=== PATIENT | female | born 1945 | race Caucasian/White ===

== ENCOUNTER 2019-05-22 12:32 | Outpatient (CLI) | payer MEDICARE, SELFPAY ==
--- NOTE | 2019-05-22 13:04 | MR_ITS ---
WS: [id number] MRA HEAD TECHNIQUE: Axial 3-D TOF images obtained with axial images and axial, sagittal, and coronal 2-D refor matted images. CLINICAL INFORMATION: RT TRANSIENT VISUAL LOSS COMPARISON: None. FINDINGS: Distal vertebral arteries are patent. Basilar artery is patent. Normal vascularity to the WOOD DOWEL MACHINE OPERATOR territo ry bilaterally. Both ICAs are patent at the skull base. Normal vascularity to the SUMANTH and MCA territories bilaterally . No evidence of high-grade proximal stenosis or aneurysm. Patent anterior communicating artery. Hypo plastic right A1 segment. No evidence of high-grade proximal stenosis or aneurysm. MR/MR angio head wo con [id number] IMPRESSION: 1. No evidence of high-grade proximal stenosis or aneurysm. 2. Normal variant hypoplastic right A1 segment.
--- NOTE | 2019-05-22 13:04 | MR_ITS ---
WS: [id number] MRA CAROTID WITHOUT AND WITH GADOLINIUM ENHANCEMENT TECHNIQUE: Axial 2-D TOF and gadolinium bolus images obtained with axial images and axial, sagittal, and coronal 2-D reformatted images. CLINICAL INFORMATION: TIA/RT TRANSIENT VISUAL LOSS COMPARISON: None. FINDINGS: Left: Left common carotid artery is patent. No significant left ICA stenosis. Left ICA is patent to t he skull base. Right: Right common carotid artery is patent. High-grade stenosis involving the right proximal ICA ap proximately 7 mm distal to the bifurcation with ulcerated plaque. Short segment high-grade stenosis. Right ICA is patent to the skull base with slightly reduced caliber. Moderate stenosis right proximal subclavian artery. Codominant and patent vertebral arteries laurie jaimes MR/MR angio neck w con* [id number] IMPRESSION: 1. High-grade stenosis right proximal ICA approximately 7 mm distal to the bif urcation. Associated ulcerated plaque. Right ICA remains patent to the skull ba se with slightly decreased caliber. 2. No significant left ICA stenosis. 3. Codominant and patent vertebral arteries bilaterally. 4. Moderate stenosis right proximal subclavian artery which remains patent.
[2019-05-22 14:15] LABS: Blood Urea Nitrogen 6 mg/dL (8-23)
== END 2019-05-22 12:33 | disposition home or self-care (01) ==
LOC: RADSHAW 12:40
PROVIDERS: Family Provider Physician Assistant; PCP Physician Assistant; Visit Provider Physician Assistant
DX: H53.121 Transient visual loss, right eye (principal); I70.8 Atherosclerosis of other arteries
CPT/HCPCS: 70544; 70548; 82565; 84520; A9579

== ENCOUNTER 2020-02-17 12:39 | Outpatient (CLI) | payer MEDICARE, SELFPAY ==
--- NOTE | 2020-02-17 13:08 | MM_ITS ---
WS: [id number] BILATERAL SCREENING DIGITAL MAMMOGRAM WITH CAD HISTORY: SCREEN COMPARISON: 06/21/2018 and 02/02/2015 Bilateral CC and MLO views submitted. Computer aided detection analyzed. Breast composition: There are scattered areas of fibroglandular density. No suspicious masses, microc alcifications or architectural distortion. Benign scattered calcifications in each breast. No suspici ous mass. MM/[place] [id number] IMPRESSION: BI-RADS: 2-Benign FOLLOW UP: 1 Year Follow-up
== END 2020-02-17 12:40 | disposition home or self-care (01) ==
LOC: RADSHAW 12:41
PROVIDERS: PCP Physician Assistant; Visit Provider Physician Assistant
DX: Z12.31 Encounter for screening mammogram for malignant neoplasm of breast (principal)
CPT/HCPCS: 77067

== ENCOUNTER 2020-02-17 13:42 | Outpatient (CLI) | payer MEDICARE, SELFPAY ==
--- NOTE | 2020-02-17 13:51 | CT_ITS ---
WS: [id number] LDCT LUNG CANCER SCREENING HISTORY: NICOTINE dependence, cigarettes. TECHNIQUE: Axial imaging performed from the apices to 1 cm below the costophrenic angles. Coronal and sagittal reformats are submitted with axial MIP series. All CT scans at [facility] use at least one of these dose optimization techniques: automated exposure control; mA and/or kV adjustment per patient size (includes targeted exams where dose is matched to clinical indication); or iterativ e reconstruction. DLP: 52.75 mGy.cm DIvol: 1.51 mGy COMPARISON: 05/05/2017 Diagnostic quality: Satisfactory Lung Nodules: There are several tiny pulmonary nodules throughout both lungs. These are all less than 4 mm. Previously described on 05/05/2017. No new or increasing nodule. There is an area of groundglas s attenuation in the periphery of the RIGHT lower lobe measuring 1.7 cm. Additional area of subpleura l blebs with mild wall thickening in the medial RIGHT lower lobe. All of these findings have been pre sent on the prior studies. Lungs: Hyperexpanded lungs with severe emphysema. Heart: Normal size heart. Extensive calcification versus stent in the LEFT anterior descending fritz ry artery. No pericardial effusion. Other findings: Moderate atherosclerosis aorta. Very large hiatal hernia. Prior cholecystectomy. Incr ease in the thoracic kyphosis and osteopenia. CT/CT lung screening [id number] IMPRESSION: LUNG-RADS: 2-Benign Appearance or Behavior FOLLOW UP: 12 Month: Continue annual screening with LDCT OTHER FINDINGS (S MODIFIER): None.
== END 2020-02-17 13:43 | disposition home or self-care (01) ==
PROVIDERS: PCP Physician Assistant; Visit Provider Family Medicine
DX: Z12.2 Encounter for screening for malignant neoplasm of respiratory organs (principal); F17.210 Nicotine dependence, cigarettes, uncomplicated; I70.0 Atherosclerosis of aorta; K43.9 Ventral hernia without obstruction or gangrene; Z90.49 Acquired absence of other specified parts of digestive tract
CPT/HCPCS: G0297

== ENCOUNTER 2020-02-25 14:50 | Outpatient (CLI) | payer MEDICARE, SELFPAY ==
--- NOTE | 2020-02-25 14:56 | XR_ITS ---
WS: [id number] Bone mineral density performed on a [employer], 02/25/2020 Clinical data: POST MENOPAUSAL Findings: The first 4 lumbar vertebral bodies demonstrated the bone mineral density of 1.065 g/cm2 for a young adult T score of -1.0. Measurement of the left hip reveals a bone mineral density of 0.914 g/cm2 with a young adult T score of -0.7. Measurement of the right hip reveals the bone mineral density of 0.773 g/cm2 for young adult T score of -1.9. XR/XR DEXA axial skeleton* [id number] Impression: 1. The bone mineral density of the lumbar spine showed normal bone mineral dens ity. 2. The left hip shows normal bone mineral density. 3. The right hip shows osteopenia.
== END 2020-02-25 14:51 | disposition home or self-care (01) ==
LOC: RADWPI 14:55
PROVIDERS: PCP Physician Assistant; Visit Provider Physician Assistant
DX: Z78.0 Asymptomatic menopausal state (principal); M85.88 Other specified disorders of bone density and structure, other site
CPT/HCPCS: 77080

== ENCOUNTER → 2020-03-04 11:10 | Outpatient (BNVA) | payer MEDICARE, SELFPAY | PROVIDERS: PCP Physician Assistant; Visit Provider Internal Medicine | DX: Z20.828 Contact with and (suspected) exposure to other viral communicable diseases (principal) | CPT/HCPCS: 87635 ==

== ENCOUNTER 2020-03-09 08:11 | Day surgery (SDC) | payer MEDICARE, SELFPAY ==
[2020-03-05 10:49] VITALS: BMI 27.4
[2020-03-09 08:31] VITALS: BP 117/66; PULSE 84; RESP 22; TEMP 36.3; O2SAT 100
[2020-03-09] MEDS: sodium chloride 0.9% 1,000 ML 30 ML IV (08:47)
--- NOTE | 2020-03-09 08:48 | ANES.PREANE2 ---
Pre-Anesthetic Assessment Pre-Anesthetic Assessment: Height/Weight: Height 1.6 m Weight 70.307 kg Temp Pulse Resp BP Pulse Ox 97.3 F L 84 22 H 117/66 100 03/09/20 08:31 03/09/20 08:31 03/09/20 08:31 03/09/20 08:31 03/09/20 08:31 Preop Diagnosis: c Proposed Procedure: Operation Date: 03/09/20 09:15 Proposed Procedures p EGD [id number] 95048 z12.11(Not Applicable) - Boris Sen MD s Colonoscopy(Not Applicable) - Boris Sen MD Familial anesthetic complications: ponv Was Beta Rubens taken within 24 hours: N/A Last intake: Intake Last Liquid Date 03/08/20 Last Liquid Time 20:00 Last Solid Date 03/07/20 Last Solid Time 20:00 Social: Social History: No alcohol and No tobacco Exam: Pre-Anes Outpt Exam: alert, oriented x 3, clear to auscultation bilaterally and regular rate & rhythm Airway: Cervical ROM: WNL MP: 2 Dentition: False and Partials Pulmonary: Pulmonary: COPD and Cough (chronic cough) Comments: quit smoking in october GI: GI: GERD Metabolic: Metabolic: Hyperlipidemia Neuropsych: Comments: b/l carotide artery stenosis s/p cea Anesthetic Plan: ASA status: 3 Anesthesia: MAC Risk of > 500 ml blood loss (7ml/kg in children): No Meds/Allergies Current Medications: Current Medications Generic Name Dose Route Start Last Admin Trade Name Freq PRN Reason Stop Dose Admin Sodium Chloride 1,000 mls @ 30 ml s/hr 03/09/20 08:30 03/09/20 08:47 Sodium Chloride 0.9% IV 30 mls/hr .Q24H KALYANI Administration PFSH Anesthesia PFSH: Social History (Updated 03/04/20 @ 09:47 by ASAD Liu) Smoking and tobacco status: current every day smoker Alcohol intake: never History of recent travel: No Data Anesthesia Cardiac Studies: No Data to Display
--- NOTE | 2020-03-09 08:50 | PC.NURSE ---
Called RT for preop albuterol treatment per anesthesia request.
[2020-03-09 09:08] VITALS: PULSE 81; RESP 16; O2SAT 95
[2020-03-09 09:11] VITALS: PULSE 86
[2020-03-09 09:58] VITALS: BP 84/46; PULSE 73; RESP 18; TEMP 36.4; O2SAT 95
[2020-03-09 10:23] VITALS: BP 106/61; PULSE 80; RESP 18; O2SAT 98
[2020-03-09 10:53] VITALS: BP 118/58
--- NOTE | 2020-03-09 14:12 | ANE.PACU2 ---
Inpatient post-anesthesia follow up: Airway intact: Yes Vital signs: Temperature 97.6 F Pulse Rate 80 Respiratory Rate 18 Blood Pressure 118/58 Pulse Oximetry 98 Oxygen Delivery Me thod Room Air Oxygen Flow Rate 3 Fraction of Inspir ed Oxygen Hydration adequate: Yes Nausea and vomiting: No Pain level: 1 Mental status: Baseline
[2020-03-10 07:02] LABS: H. Pylori / CLO Test Negative
--- NOTE | 2020-03-11 09:45 | W.PM.OPSUD ---
Surgery/Procedure H&P Update DATE OF PROCEDURE: March 11, 2020 DATE H&P PERFORMED: 03/04/20 PREOP DIAGNOSIS: c PLANNED PROCEDURE: Operation Date: 03/09/20 09:15 Proposed Procedures p EGD [id number] 36740 z12.11(Not Applicable) - Boris Sen MD s Colonoscopy(Not Applicable) - Boris Sen MD
== END 2020-03-09 11:06 | disposition home or self-care (01) ==
PROVIDERS: PCP Physician Assistant; Visit Provider Internal Medicine
PROC: 0DJ08ZZ Inspection of Upper Intestinal Tract, Via Natural or Artificial Opening Endoscopic (ICD-10-PCS; CPT 43235; principal; 2020-03-09 09:15)
PROC: 0DJD8ZZ Inspection of Lower Intestinal Tract, Via Natural or Artificial Opening Endoscopic (ICD-10-PCS; CPT 45378; 2020-03-09 09:15)
DX: Z12.11 Encounter for screening for malignant neoplasm of colon (principal); K44.9 Diaphragmatic hernia without obstruction or gangrene; K29.31 Chronic superficial gastritis with bleeding; K57.30 Diverticulosis of large intestine without perforation or abscess without bleeding; R12 Heartburn; J44.9 Chronic obstructive pulmonary disease, unspecified; E78.5 Hyperlipidemia, unspecified; K21.9 Gastro-esophageal reflux disease without esophagitis; F17.200 Nicotine dependence, unspecified, uncomplicated
CPT/HCPCS: 12345; 43239; 45378; 87077; 94640; G0121; J2370; J2704; J7030; J7611

== ENCOUNTER 2021-03-27 16:49 | Emergency (ER) | payer MEDICARE, SELFPAY ==
[2021-03-27 16:58] VITALS: BP 121/77; PULSE 86; RESP 16; TEMP 36.6; O2SAT 97
--- NOTE | 2021-03-27 17:31 | ECG_ITS ---
[facility] Test Date: 2021-03-27 Pat Name: Chauncey Greene Department: Room: Gender: Female Ship Liner: : 1945 Requested By: Althea Lovelace Order Number: [id number] Letty MD: Frederick Jimenes M.D. 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 [id number]
--- NOTE | 2021-03-27 17:31 | CTR_ITS ---
PROCEDURE INFORMATION: Exam: CT Head Without Contrast Exam date and time: 03/27/2021 5:31 PM Age: 75 years old Clinical indication: Dizziness and weakness, extremity; Right; Patient HX: Rle weakness w/ dizziness; Additional info: Symptoms of acute stroke TECHNIQUE: Imaging protocol: Computed tomography of the head without contrast. Radiation optimization: All CT scans at this facility use at least one of these dose optimization techniques: automated exposure control; mA and/or kV adjustment per patient size (includes targeted exams where dose is matched to clinical indication); or iterative reconstruction. COMPARISON: MR angio head wo con [id number] 05/22/2019 1:42 PM RADIATION DOSE METRICS: Total DLP (mGy-cm): 1701.08 FINDINGS: Brain: The brain is unremarkable. There is no mass effect or significant white matter disease. There is no acute intracranial hemorrhage. Cerebral ventricles: There is no significant ventricular dilation. The basal cisterns are unremarkable. Paranasal sinuses: The paranasal sinuses are clear. Mastoid air cells: The mastoid air cells are clear. Bones/joints: The calvarium is intact. Soft tissues: The visible extracranial soft tissues are unremarkable. CT/CT head wo con* [id number] IMPRESSION: No acute intracranial abnormality. Radiation Dose CTDIVOL = (mGy): DLP = 1701.08 (mGy-cm)
[2021-03-27 18:18] LABS: Basophils % 0.2 %; Eosinophils # 0.1 10^3/uL (0.0-0.8); Eosinophils % 1.7 %; Hematocrit 40.5 % (37.0-47.0); Hemoglobin 13.6 g/dL (11.5-15.3); Lymphocytes % 76.6 %; Mean Corpuscular HGB Conc 33.6 g/dL (30.0-36.0); Mean Corpuscular Hemoglobin 32.1 pg (28.0-34.0); Mean Corpuscular Volume 95.5 fl (81-99); Mean Platelet Volume 9.4 fL (7.4-10.4); Monocytes # 0.7 10^3/uL (0.2-0.9); Neutrophils % 7.3 %; Nucleated Red Blood Cells % 0 %; Platelet Count 330 10^3/cmm (130-400); Red Blood Count 4.24 10^6/uL (4.1-5.3); Red Cell Distribution Width 13.1 % (12.1-15.1); White Blood Count 5.2 10^3/uL (4.0-10.0)
[2021-03-27 18:22] LABS: INR 0.88 (0.8-1.2); Neutrophils # 0.38 10^3/uL (1.8-7.7)
[2021-03-27 18:23] LABS: Partial Thromboplastin Time 31.3 SECONDS (23.9-36.7)
[2021-03-27 18:30] LABS: Alanine Aminotransferase 11 U/L (0-33); Albumin Level 4.1 g/dL (3.5-5.2); Alkaline Phosphatase 70 IU/L (35-105); Anion Gap 13.9 (5-19); Aspartate Amino Transferase 21 U/L (0-32); Blood Urea Nitrogen 9 mg/dL (8-23); Calcium 8.5 mg/dL (8.5-10.5); Carbon Dioxide 26 mmol/L (22-29); Chloride 99 mmol/L (98-107); Creatinine Clr Calc Pharmacy 55.0543; Glucose 117 mg/dL (65-115); Osmolality Calculated 280 mOsm/kg (285-295); Potassium 3.9 mmol/L (3.5-5.1); Sodium 135 mmol/L (136-145); Total Bilirubin 0.2 mg/dL (0.15-1.2); Total Protein 7.1 g/dL (6.6-8.7)
[2021-03-27 18:40] VITALS: BP 123/58; PULSE 83; RESP 15; O2SAT 92
--- NOTE | 2021-03-27 18:59 | W.ED.GENADLT ---
Documented by User: Althea Lovelace MD 03/30/21 12:10 HPI - General Adult General: Chief complaint: Neuro Symptoms/Deficit Stated complaint: fell, Dizzy spells, Headache, ABD pain Time Seen by Provider: 03/27/21 17:31 History of Present Illness: HPI narrative: CC: Transient R leg weakness and R facial numbness HPI: [75]yo patient w/ hx of prior b/l endaractomy presenting to the ED for acute R leg weakness and R facial numbness x 3 hrs which occurred 3 hrs ago but has since resolved completely 15 minutes ago. Since then, symptoms have been persistent and have not improved. Denies any chest pain, SOB, palpitations, /GI complaints. Patient is not on any anticoagulation. Onset: 3 hrs ago Duration: 3 hrs Location: home Severity: severe Review of Systems Narrative: Constitutional: No fever, no chills. HEENT: No vision changes CV: No chest pain, no palpitations PULM: No cough, no dyspnea. GI: No abdominal pain, no N/V/D. : No dysuria MSKEL: No edema SKIN: No new rashes, no lesions. NEURO: +transient focal R leg weakness, +transient R facial numbness HEME: No visible bruises PSYCH: Normal mood PFSH ED PFSH: Social History (Updated 03/04/20 @ 09:47 by ASAD Liu) Smoking and tobacco status: current every day smoker Alcohol intake: never History of recent travel: No Physical Exam Narrative: EXAM NARRATIVE: Head: Atraumatic Eyes: PERRL, conjunctiva without injection ENT: Mucous membrane moist NECK: Supple without lymphadenopathy LUNGS: CTA CV: RRR ABDOMEN: Soft, nontender EXTREMITY: Normal ROM SKIN: No rash or erythema NEURO: NIHSS: 1. Level of Consciousness A) LOC Responsiveness 0 B) LOC Questions 0 C) LOC Commands 0 2. Horizontal Eye Movement 0 3. Visual field test 0 4. Facial Palsy 0 5. Motor Arm 0 6. Motor Leg 0 7. Limb Ataxia 0 9. Language 0 10. Speech 0 11. Extinction and Inattention 0 PSYCH: Normal mood and affect. Course Vital Signs: Vital signs: Vital Signs Temperature 97.9 F 03/27/21 16:58 Pulse Rate 83 03/27/21 18:40 Respiratory Rate 15 03/27/21 18:40 Blood Pressure 132/58 03/27/21 19:21 Pulse Oximetry 92 03/27/21 18:40 MDM - General Adult MDM Narrative: Medical decision making narrative: [75]yo patient w/ pMH of HTN, b/l endaractomy BIBA for concerns of transient focal neurological deficit including R leg weakness and R facial numbness. Presentation concerning for possible ischemic stroke requiring workup. Given History and Exam I have lower suspicion for infectious etiology, neurologic changes secondary to toxicologic ingestion, seizure, complex migraine. Workup include: POC glucose, CBC, BMP, LFTs, Troponin, PT/INR, PTT, EKG without evidence of STEMI or ischemia, fingerstick BS not hypoglycemic, and clinical picture does not suggest other stroke mimic. Plan to workup for TIA CT head negative for any acute findings. Patent is afebrile but noted to be in significant neutropenia. Disposition: Admission to Neurology with MRI brain/MRA head/neck Lab Data: Labs: Lab Results 03/27/21 03/27/21 03/27/21 17:43 17:43 17:43 WBC 5.2 10^3/uL 10^3/ uL (4.0-10.0) RBC 4.24 10^6/uL 10^6 /uL (4.1-5.3) Hgb 13.6 g/dL g/dL (11.5-15.3) Hct 40.5 % % (37.0-47.0) MCV 95.5 fl fl (81-99) MCH 32.1 pg pg (28.0-34.0) MCHC 33.6 g/dL g/dL (30.0-36.0) RDW 13.1 % % (12.1-15.1) Plt Count 330 10^3/cmm 10^3 /cmm (130-400) MPV 9.4 fL fL (7.4-10.4) Neut % (Auto) 7.3 % % Lymph % (Auto) 76.6 % % Cobb % (Auto) 14.0 % % Eos % (Auto) 1.7 % % Baso % (Auto) 0.2 % % Neut # (Auto) 0.38 10^3/uL L* 1 0^3/uL (1.8-7.7) Lymph # (Auto) 4.0 10^3/uL 10^3/ uL (0.8-4.8) Cobb # (Auto) 0.7 10^3/uL 10^3/ uL (0.2-0.9) Eos # (Auto) 0.1 10^3/uL 10^3/ uL (0.0-0.8) Baso # (Auto) 0.0 10^3/uL 10^3/ uL (0.0-0.1) Nucleated RBC % (a uto) 0 % % Nucleated RBCs # 0.0 /100WBC /100W BC PT 12.20 SECONDS SEC ONDS (12.1-14.9) INR 0.88 (0.8-1.2) APTT 31.3 SECONDS SECO NDS (23.9-36.7) Sodium 135 mmol/L L mmol /L (136-145) Potassium 3.9 mmol/L mmol/L (3.5-5.1) Chloride 99 mmol/L mmol/L (98-107) Carbon Dioxide 26 mmol/L mmol/L (22-29) Anion Gap 13.9 (5-19) BUN 9 mg/dL mg/dL (8-23) Creatinine 0.7 mg/dL mg/dL (0.5-0.9) GFR Calculation Not Reportable Glucose 117 mg/dL H mg/dL (65-115) Calculated Osmolal ity 280 mOsm/kg L mOs m/kg (285-295) Calcium 8.5 mg/dL mg/dL (8.5-10.5) Total Bilirubin 0.2 mg/dL mg/dL (0.15-1.2) AST 21 U/L U/L (0-32) ALT 11 U/L U/L (0-33) Alkaline Phosphata se 70 IU/L IU/L (35-105) Total Protein 7.1 g/dL g/dL (6.6-8.7) Albumin 4.1 g/dL g/dL (3.5-5.2) Globulin 3.0 g/dL g/dL (1.3-4.6) Urine Color Urine Appearance Urine pH Ur Specific Gravit y Urine Protein Urine Glucose (UA) Urine Ketones Urine Blood Urine Nitrate Urine Bilirubin Urine Urobilinogen Ur Leukocyte Vandana ase 03/27/21 19:01 WBC RBC Hgb Hct MCV MCH MCHC RDW Plt Count MPV Neut % (Auto) Lymph % (Auto) Cobb % (Auto) Eos % (Auto) Baso % (Auto) Neut # (Auto) Lymph # (Auto) Cobb # (Auto) Eos # (Auto) Baso # (Auto) Nucleated RBC % (a uto) Nucleated RBCs # PT INR APTT Sodium Potassium Chloride Carbon Dioxide Anion Gap BUN Creatinine GFR Calculation Glucose Calculated Osmolal ity Calcium Total Bilirubin AST ALT Alkaline Phosphata se Total Protein Albumin Globulin Urine Color Yellow (Yellow) Urine Appearance Clear (CLEAR) Urine pH 5 (5-7) Ur Specific Gravit y 1.015 (1.005-1.030) Urine Protein Neg (Negative) Urine Glucose (UA) Norm (Normal) Urine Ketones Negative (Negative) Urine Blood Neg (Negative) Urine Nitrate Negative (Negative) Urine Bilirubin Neg (Negative) Urine Urobilinogen Norm mg/dL mg/dL (Negative) Ur Leukocyte Vandana ase Negative (Negative) Imaging Data^: Other Imaging: Radiologist's impression: Proton Therapy[address] [id number] Scan ReportSigned Patient: Chauncey Greene #: [id number]: 1945cct#:[id number]/Sex: 75 / FADM Date: 03/27/21Loc: [facility]/Bed:Attending Dr: Ordering Provider/Ordering MD: Althea Lovelace MD Date of Service: 03/27/21 Procedure(s): CT head wo con* [id number] Accession Number(s): [id number] Report Number: [id number] PROCEDURE INFORMATION: Exam: CT Head Without Contrast Exam date and time: 03/27/2021 5:31 PM Age: 75 years old Clinical indication: Dizziness and weakness, extremity; Right; Patient HX: Rle weakness w/ dizziness; Additional info: Symptoms of acute stroke TECHNIQUE: Imaging protocol: Computed tomography of the head without contrast. Radiation optimization: All CT scans at this facility use at least one of these dose optimization techniques: automated exposure control; mA and/or kV adjustment per patient size (includes targeted exams where dose is matched to clinical indication); or iterative reconstruction. COMPARISON: MR angio head wo con [id number] 05/22/2019 1:42 PM RADIATION DOSE METRICS: Total DLP (mGy-cm): 1701.08 FINDINGS: Brain: The brain is unremarkable. There is no mass effect or significant white matter disease. There is no acute intracranial hemorrhage. Cerebral ventricles: There is no significant ventricular dilation. The basal cisterns are unremarkable. Paranasal sinuses: The paranasal sinuses are clear. Mastoid air cells: The mastoid air cells are clear. Bones/joints: The calvarium is intact. Soft tissues: The visible extracranial soft tissues are unremarkable. CT/CT head wo con* [id number] IMPRESSION: No acute intracranial abnormality. Radiation Dose CTDIVOL = (mGy): DLP = 1701.08 (mGy-cm) Dictated By:Eric Espinosa MDSigned By:Eric Espinosaigned Date/Time:03/27/211826 Discharge Plan Discharge Patient Disposition: Home Clinical Impression: Brain TIA Condition: Stable Prescriptions: New Aspirin Low Dose 81 mg tablet,delayed release (DR/EC) 81 mg PO DAILY Qty: 30 RF: 0 No Action lisinopril 20 mg tablet 20 mg PO DAILY RF: 0 albuterol sulfate [Ventolin HFA] 90 mcg/actuation HFA aerosol inhaler 2 puff INHALATION Q6H PRN (Reason: Shortness Of Breath) RF: 0 atorvastatin 20 mg tablet 40 mg PO DAILY RF: 0 pantoprazole 40 mg tablet,delayed release (DR/EC) 40 mg PO DAILY Qty: 90 RF: 8 multivitamin Tablet 1 tab PO DAILY RF: 0 prednisone 20 mg tablet 20 mg PO DAILY PRN (Reason: arthritis) RF: 0 Discharge Orders: Discharge ED (Routine); Ordered 03/27/21 Ordered By: Rick Abrams Referrals: Barbi Andrews PA [Primary Care Provider] - 4-7 days Patient Instructions: Transient Ischemic Attack (ED) Activity Restrictions/Additional Instructions: Return for any return of your symptoms including weakness, vision problems, language problems, numbness, headache, mental status changes, any other concerns. Take at least 81 mg of aspirin daily as we discussed until you see your doctor. Coding Level of Care Code ED Power Generation Equipment Repairer for Chg Fwd Documented by User: Rick Portillo Jose Alberto, 03/27/21 19:39 HPI - General Adult General: Chief complaint: Neuro Symptoms/Deficit Stated complaint: fell, Dizzy spells, Headache, ABD pain Time Seen by Provider: 03/27/21 17:31 PFSH ED PFSH: Social History (Updated 03/04/20 @ 09:47 by ASAD Liu) Smoking and tobacco status: current every day smoker Alcohol intake: never History of recent travel: No Course Vital Signs: Vital signs: Vital Signs Temperature 97.9 F 03/27/21 16:58 Pulse Rate 83 03/27/21 18:40 Respiratory Rate 15 03/27/21 18:40 Blood Pressure 132/58 03/27/21 19:21 Pulse Oximetry 92 03/27/21 18:40 MDM - General Adult MDM Narrative: Medical decision making narrative: 75-year-old female originally seen by Dr. Zimmer. She was checked out to me at shift change. This lady likely had a TIA today. The plan was to admit/observe this lady, for continued stroke work-up. I went in to discuss lab results and CT findings with the patient. They declined admission. They state that they have a puppy to take care of at home. I discussed the risks of leaving including evolving stroke, with worsening symptoms such as permanent weakness, permanent language problems, blindness and . They agreed the risks. They will return for any return of her symptoms. I discussed returning within a timely fashion due to time constraints for thrombolytic therapy. She had stopped taking aspirin after her carotid endarterectomy. We discussed being on 81 mg aspirin until she follows up with her doctor. Smoking cessation is also paramount Lab Data: Labs: Lab Results 03/27/21 03/27/21 03/27/21 17:43 17:43 17:43 WBC 5.2 10^3/uL 10^3/ uL (4.0-10.0) RBC 4.24 10^6/uL 10^6 /uL (4.1-5.3) Hgb 13.6 g/dL g/dL (11.5-15.3) Hct 40.5 % % (37.0-47.0) MCV 95.5 fl fl (81-99) MCH 32.1 pg pg (28.0-34.0) MCHC 33.6 g/dL g/dL (30.0-36.0) RDW 13.1 % % (12.1-15.1) Plt Count 330 10^3/cmm 10^3 /cmm (130-400) MPV 9.4 fL fL (7.4-10.4) Neut % (Auto) 7.3 % % Lymph % (Auto) 76.6 % % Cobb % (Auto) 14.0 % % Eos % (Auto) 1.7 % % Baso % (Auto) 0.2 % % Neut # (Auto) 0.38 10^3/uL L* 1 0^3/uL (1.8-7.7) Lymph # (Auto) 4.0 10^3/uL 10^3/ uL (0.8-4.8) Cobb # (Auto) 0.7 10^3/uL 10^3/ uL (0.2-0.9) Eos # (Auto) 0.1 10^3/uL 10^3/ uL (0.0-0.8) Baso # (Auto) 0.0 10^3/uL 10^3/ uL (0.0-0.1) Nucleated RBC % (a uto) 0 % % Nucleated RBCs # 0.0 /100WBC /100W BC PT 12.20 SECONDS SEC ONDS (12.1-14.9) INR 0.88 (0.8-1.2) APTT 31.3 SECONDS SECO NDS (23.9-36.7) Sodium 135 mmol/L L mmol /L (136-145) Potassium 3.9 mmol/L mmol/L (3.5-5.1) Chloride 99 mmol/L mmol/L (98-107) Carbon Dioxide 26 mmol/L mmol/L (22-29) Anion Gap 13.9 (5-19) BUN 9 mg/dL mg/dL (8-23) Creatinine 0.7 mg/dL mg/dL (0.5-0.9) GFR Calculation Not Reportable Glucose 117 mg/dL H mg/dL (65-115) Calculated Osmolal ity 280 mOsm/kg L mOs m/kg (285-295) Calcium 8.5 mg/dL mg/dL (8.5-10.5) Total Bilirubin 0.2 mg/dL mg/dL (0.15-1.2) AST 21 U/L U/L (0-32) ALT 11 U/L U/L (0-33) Alkaline Phosphata se 70 IU/L IU/L (35-105) Total Protein 7.1 g/dL g/dL (6.6-8.7) Albumin 4.1 g/dL g/dL (3.5-5.2) Globulin 3.0 g/dL g/dL (1.3-4.6) Urine Color Urine Appearance Urine pH Ur Specific Gravit y Urine Protein Urine Glucose (UA) Urine Ketones Urine Blood Urine Nitrate Urine Bilirubin Urine Urobilinogen Ur Leukocyte Vandana ase 03/27/21 19:01 WBC RBC Hgb Hct MCV MCH MCHC RDW Plt Count MPV Neut % (Auto) Lymph % (Auto) Cobb % (Auto) Eos % (Auto) Baso % (Auto) Neut # (Auto) Lymph # (Auto) Cobb # (Auto) Eos # (Auto) Baso # (Auto) Nucleated RBC % (a uto) Nucleated RBCs # PT INR APTT Sodium Potassium Chloride Carbon Dioxide Anion Gap BUN Creatinine GFR Calculation Glucose Calculated Osmolal ity Calcium Total Bilirubin AST ALT Alkaline Phosphata se Total Protein Albumin Globulin Urine Color Yellow (Yellow) Urine Appearance Clear (CLEAR) Urine pH 5 (5-7) Ur Specific Gravit y 1.015 (1.005-1.030) Urine Protein Neg (Negative) Urine Glucose (UA) Norm (Normal) Urine Ketones Negative (Negative) Urine Blood Neg (Negative) Urine Nitrate Negative (Negative) Urine Bilirubin Neg (Negative) Urine Urobilinogen Norm mg/dL mg/dL (Negative) Ur Leukocyte Vandana ase Negative (Negative) Discharge Plan Discharge Patient Disposition: Home Clinical Impression: Brain TIA Condition: Stable Prescriptions: New Aspirin Low Dose 81 mg tablet,delayed release (DR/EC) 81 mg PO DAILY Qty: 30 RF: 0 No Action lisinopril 20 mg tablet 20 mg PO DAILY RF: 0 albuterol sulfate [Ventolin HFA] 90 mcg/actuation HFA aerosol inhaler 2 puff INHALATION Q6H PRN (Reason: Shortness Of Breath) RF: 0 atorvastatin 20 mg tablet 40 mg PO DAILY RF: 0 pantoprazole 40 mg tablet,delayed release (DR/EC) 40 mg PO DAILY Qty: 90 RF: 8 multivitamin Tablet 1 tab PO DAILY RF: 0 prednisone 20 mg tablet 20 mg PO DAILY PRN (Reason: arthritis) RF: 0 Discharge Orders: Discharge ED (Routine); Ordered 03/27/21 Ordered By: Rick Abrams Referrals: Barbi Andrews PA [Primary Care Provider] - 4-7 days Patient Instructions: Transient Ischemic Attack (ED) Activity Restrictions/Additional Instructions: Return for any return of your symptoms including weakness, vision problems, language problems, numbness, headache, mental status changes, any other concerns. Take at least 81 mg of aspirin daily as we discussed until you see your doctor. Coding Level of Care Code ED Power Generation Equipment Repairer for Shantelle Arguelles
[2021-03-27 19:09] LABS: Add Urine Microscopic? NO; Charge for UA Resulting for Rev
[2021-03-27 19:11] LABS: Bilirubin Urine Neg (Negative); Blood Urine Neg (Negative); Glucose Urine UA Norm (Normal); Ketones Urine Negative (Negative); Leukocyte Esterase Urine Negative (Negative); Nitrate Urine Negative (Negative); Protein Urine Neg (Negative); Specific Gravity, Urine 1.015 (1.005-1.030); Urine Appearance Clear (CLEAR); Urine Color Yellow (Yellow); Urobilinogen Urine Norm (Negative); pH Urine 5 (5-7)
[2021-03-27 19:21] VITALS: BP 132/58
== END 2021-03-27 19:46 | disposition home or self-care (01) ==
PROVIDERS: Emergency Medicine; Emergency Provider Emergency Medicine; PCP Physician Assistant
DX: G45.9 Transient cerebral ischemic attack, unspecified (principal); F17.210 Nicotine dependence, cigarettes, uncomplicated
CPT/HCPCS: 70450; 80053; 81003; 85025; 85610; 85730; 93005; 99284

== ENCOUNTER 2021-05-18 12:58 | Outpatient (CLI) | payer MEDICARE, SELFPAY ==
--- NOTE | 2021-05-18 13:53 | MR_ITS ---
WS: [id number] MRI HEAD WITH CONTRAST TECHNIQUE: Sagittal T1, T2 axial, T2 axial FLAIR, axial susceptibility weighted imaging, axial diffus ion weighted images, and coronal T2 images were obtained. Pre and post-T1 axial and post T1 coronal i mages. ADC and FSPGR images. CLINICAL INFORMATION: TIA COMPARISON: CT March 27, 2021. MRA head May 22, 2019 FINDINGS: No evidence of restricted diffusion to suggest acute ischemia. Ventricular system and basal cisterns are patent. Moderate small vessel changes. Mild to moderate parenchymal volume loss. Normal posterior fossa. Normal vascular flow voids at the skull base. No extra-axial fluid collections. No evidence o f mass or mass effect. Paranasal sinuses are well aerated. Mastoid air cells are well aerated. No hemosiderin on the susceptibility weighted images. Normal optic chiasm and pituitary infundibulum. Mild symmetric atrophy temporal lobes and hippocampal formations. No abnormal gadolinium enhancement. Normal dural venous sinuses. Normal cavernous sinuses and Meckel' s cave. MR/MR head wo/w con [id number] IMPRESSION: 1. No evidence of restricted diffusion to suggest acute ischemia. 2. Moderate small vessel changes with [id number] parenchymal volume loss . 3. No abnormal gadolinium enhancement. 4. Mild symmetric atrophy temporal lobes and hippocampal formations. 5. No hemosiderin on susceptibly weighted images. 6. No other significant findings.
[2021-05-18] MEDS: gadobenate dimeglumine 20 mL vial IV (15:09)
== END 2021-05-18 12:59 | disposition home or self-care (01) ==
PROVIDERS: PCP Physician Assistant; Visit Provider Physician Assistant
DX: G45.9 Transient cerebral ischemic attack, unspecified (principal); G31.9 Degenerative disease of nervous system, unspecified
CPT/HCPCS: 70553

== ENCOUNTER 2021-07-30 10:31 | Day surgery (SDC) | payer MEDICARE, SELFPAY ==
[2021-07-28 08:32] VITALS: BMI 25.7
--- NOTE | 2021-07-30 10:46 | P.ANESASSM_ITS ---
Pre-Anesthetic Assessment Height/Weight: Height 1.6 m Weight 65.771 kg Preop Diagnosis: c Operation Date: 07/30/21 12:00 Proposed Procedures p MARIBELL E78.8 hyperlipidemia/K21.9gastro -esophagel reflux(Not Applicable) - Maylin Lantigua MD Familial anesthetic complications: PONV Was Beta Rubens taken within 24 hours: N/A Was Clonidine taken within 24 hours: N/A Last intake: > 8hrs Social Tobacco and No alcohol Exam alert, oriented x 3, clear to auscultation bilaterally and regular rate & rhythm Airway Mallampati: Class II Dentition: false and partials Pulmonary Chronic Obstructive Pulmonary Disease CV/HEM Hypertension PFO GI Gastroesophageal Reflux Disease [facility] [place] Rheumatoid Arthritis Neuropsych Transient Ischemic Attack Anesthetic Plan ASA status: 3 Anesthesia: MAC Risk of > 500 ml blood loss (7ml/kg in children): No Medications/Allergies Home Medications Medication Instructions Recorded Confirmed Last Taken Type albuterol sulfate 90 mcg/actuation 2 puff INHALATION Q6H PRN 11/13/19 07/28/21 03/07/20 History aerosol inhaler (Ventolin HFA) lisinopril 20 mg tablet 20 mg PO DAILY 11/13/19 07/28/21 03/27/21 History atorvastatin 20 mg tablet 40 mg PO DAILY tab 03/04/20 07/28/21 03/26/21 History multivitamin 1 tab PO DAILY 03/05/20 07/28/21 03/27/21 History pantoprazole 40 mg tablet,delayed 40 mg PO DAILY #90 tab 03/09/20 07/28/21 03/27/21 Rx release aspirin 81 mg tablet,delayed 81 mg PO DAILY #30 tab 03/27/21 07/28/21 Unknown Rx release (Aspirin Low Dose) prednisone 20 mg tablet 20 mg PO DAILY PRN 03/27/21 07/28/21 Unknown History amlodipine 5 mg tablet 5 mg PO DAILY 07/28/21 07/28/21 Unknown History Allergies Allergy/AdvReac Type Severity Reaction Status Date / Time codeine Allergy ADR-Vomitin Verified 05/24/21 12:58 g Penicillins Allergy ALGY-Anaphy Verified 05/24/21 12:58 laxis Sulfa (Sulfonamide Allergy ALGY-Rash Verified 05/24/21 12:58 Antibiotics) [facility] Anesthesia Medical History (Updated 05/25/21 @ 20:50 by Maylin Lantigua MD) GERD (gastroesophageal reflux disease) Hyperlipidemia Hypertension IBS (irritable bowel syndrome) TIA (transient ischemic attack) Social History Smoking and tobacco status: current every day smoker Alcohol intake: never History of recent travel: No Data Anesthesia Cardiac Studies: No Data to Display
[2021-07-30 11:03] VITALS: BP 121/82; PULSE 83; RESP 18; TEMP 36.3; O2SAT 98
[2021-07-30] MEDS: sodium chloride 0.9% 1,000 ML 30 ML IV (11:12)
--- NOTE | 2021-07-30 11:21 | USCV_ITS ---
Chauncey Greene Age: 76 Gender: F : 1945 Exam Date: 07/30/2021 12:10 Ordering Phys: Maylin Lantigua MD ([email or web address]) Technologist: Prudence Mendez Exam Location: [facility] [place] Indication: CVA WITH POSSIBLE PFO BP: / HR: Rhythm: Sinus Technical Quality: Adequate MEASUREMENTS (Male / Female) Normal Values Medications Patient given IV sedation by anesthesia service, for details please refer to the anesthesia report. Complications Intubation easy. Attempts x 1. No blood on probe post procedure. Patient tolerated procedure well. Proc. Components The patient was brought to the MARIBELL examination room in a fasting state after obtaining an informed consent. The MARIBELL probe was passed into the posterior pharynx , mid-esophagus, distal esophagus, and gastric fundus. FINDINGS Left Ventricle Normal left ventricular size, systolic function and wall thickness, with no regional wall motion abnormalities. Left ventricular ejection fraction is estimated at 65 %. Right Ventricle Normal right ventricular size and systolic function. Right Atrium Normal right atrial size. Left Atrium Normal left atrial size. LA Appendage Normal left atrial appendage. No thrombus visualized in the left atrial appendage. IA Septum Small patent foramen ovale present with possibly a bidirectional shunt. Mitral Valve Structurally normal mitral valve. No mitral valve stenosis. Trace mitral valve regurgitation. Aortic Valve Structurally normal trileaflet aortic valve. No aortic valve stenosis. No aortic valve regurgitation. Tricuspid Valve Structurally normal tricuspid valve. No tricuspid valve stenosis. Trace tricuspid valve regurgitation. Pulmonic Valve Structurally normal pulmonic valve. Trace pulmonary valve regurgitation. Pericardium No pericardial effusion. Aorta Normal size aortic root and proximal ascending aorta. No aortic dilation, aneurysm or dissection. Grade III atheroma noted in proximal and mid descending aorta. CONCLUSIONS 1. Normal left ventricular size, systolic function and wall thickness, with no regional wall motion abnormalities. Left ventricular ejection fraction is estimated at 65 %. 2. Small patent foramen ovale present with possibly a bidirectional shunt. 3. Grade III atheroma noted in proximal and mid descending aorta. 4. No prior similar studies to compare. Maylin Lantigua MD (Electronically Signed) Final Date: 08 August 2021 10:06 S
--- NOTE | 2021-07-30 11:52 | W.PM.OPSFHP ---
Same Day Surgery H&P Indication for Procedure/HPI DATE OF PROCEDURE: July 30, 2021 CHIEF COMPLAINT/INDICATIONFOR SURGICAL PROCEDURE: CVA, Suspicion of PFO on TTE PREOP DIAGNOSIS: c PLANNED PROCEDURE: Operation Date: 07/30/21 12:00 Proposed Procedures p MARIBELL E78.8 hyperlipidemia/K21.9gastro -esophagel reflux(Not Applicable) - Maylin Lantigua MD 76 yo woman presented after having right leg weakness. She underwent echo that showed PFO with right to left shunting. LVEF>50%. 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 EKG showed sinus rhythm, possible left atrial enlargement. RBBB. possible old septal NH. She is here for assessment of PFO. Medications/Allergies* Home Medications Medication Instructions Recorded Confirmed Type albuterol sulfate 90 mcg/actuation 2 puff INHALATION Q6H PRN 11/13/19 07/30/21 History aerosol inhaler (Ventolin HFA) lisinopril 20 mg tablet 20 mg PO DAILY 11/13/19 07/30/21 History atorvastatin 20 mg tablet 40 mg PO DAILY tab 03/04/20 07/30/21 History multivitamin 1 tab PO DAILY 03/05/20 07/30/21 History prednisone 20 mg tablet 20 mg PO DAILY PRN 03/27/21 07/30/21 History amlodipine 5 mg tablet 5 mg PO DAILY 07/28/21 07/30/21 History Allergies/Adverse Reactions Allergy/AdvReac Type Severity Reaction Status Date / Time codeine Allergy ADR-Vomitin Verified 07/30/21 11:05 g Penicillins Allergy ALGY-Anaphy Verified 07/30/21 11:05 laxis Sulfa (Sulfonamide Allergy ALGY-Rash Verified 07/30/21 11:05 Antibiotics) Current Medications: Generic Name Dose Route Start Last Admin Trade Name Freq PRN Reason Stop Dose Admin Sodium Chloride 1,000 mls @ 30 mls/hr 07/30/21 10:45 07/30/21 11:12 Sodium Chloride 0.9% IV 07/31/21 10:44 30 mls/hr .Q24H KALYANI Administration Pertinent History/Comorbid Conditions* Medical History (Updated 05/25/21 @ 20:50 by Maylin Lantigua MD) GERD (gastroesophageal reflux disease) Hyperlipidemia Hypertension IBS (irritable bowel syndrome) TIA (transient ischemic attack) Social History Smoking and tobacco status: current every day smoker Alcohol intake: never History of recent travel: No Pertinent Exam Findings alert, oriented x 3, clear to auscultation bilaterally and regular rate & rhythm Recommendations Surgery/Procedure today Coding Level of Care Code Acute Building Construction Professor for Shantelle Arguelles
[2021-07-30 13:07] VITALS: BP 103/44; PULSE 78; RESP 18; TEMP 36.4; O2SAT 99
[2021-07-30 13:20] VITALS: BP 133/57; PULSE 82; RESP 18; TEMP 36.3; O2SAT 98
== END 2021-07-30 13:35 | disposition home or self-care (01) ==
PROVIDERS: PCP Physician Assistant; Visit Provider Internal Medicine Cardiovascular Disease
PROC: (CPT 93312; principal; 2021-07-30 12:00)
DX: I70.0 Atherosclerosis of aorta (principal); E78.5 Hyperlipidemia, unspecified; K21.9 Gastro-esophageal reflux disease without esophagitis; Z79.52 Long term (current) use of systemic steroids; I10 Essential (primary) hypertension; Z86.73 Personal history of transient ischemic attack (TIA), and cerebral infarction without residual deficits; F17.210 Nicotine dependence, cigarettes, uncomplicated; J44.9 Chronic obstructive pulmonary disease, unspecified; M06.9 Rheumatoid arthritis, unspecified
CPT/HCPCS: 93312; 93320; 93325; J2704; J7030

== ENCOUNTER → 2021-09-02 09:39 | Outpatient (BNVA) | payer MEDICARE, SELFPAY | PROVIDERS: PCP Physician Assistant; Visit Provider Internal Medicine | DX: M06.9 Rheumatoid arthritis, unspecified (principal); Z11.59 Encounter for screening for other viral diseases; Z11.1 Encounter for screening for respiratory tuberculosis | CPT/HCPCS: 73030; 73120; 80053; 85025; 85651; 86200; 86480; 86704; 86803; 87340; 99203; 99204 ==

== ENCOUNTER 2024-05-10 12:18 | Inpatient (IN) | payer MEDICARE, SELFPAY ==
[2024-05-10] VITALS (27 sets, daily range): BP systolic 100–127; BP diastolic 64–89; PULSE 78–90; RESP 16–84; TEMP 36.7–37.3; O2SAT 86–98; BMI 25.1; BMI 23.2
--- NOTE | 2024-05-10 12:22 | ECG_ITS ---
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1945 Requested By: Elizabeth Parisi Order Number: [id number] Reading MD: EDITH DRISCOLL Measurements Intervals [place] Rate: 88 P: 83 [place]: 156 QRS: 100 QRSD: 129 T: 75 QT: 366 QTc: 444 Interpretive Statements SINUS RHYTHM RIGHT BUNDLE BRANCH BLOCK [120+ ms QRS DURATION, UPRIGHT V1, 40+ ms S IN I/aVL/V4/V5/V6] SEPTAL MYOCARDIAL INFARCTION , OF INDETERMINATE AGE [40+ ms Q WAVE IN V1/V2] Compared to ECG 03/27/2021 18:14:13 No significant changes Electronically Signed On 05-10-2024 23:21:46 SUSPECT ARTIST by EDITH DRISCOLL [id number]
--- NOTE | 2024-05-10 12:49 | XR_ITS ---
WS: [id number] XR chest 1V portable [id number] REASON FOR EXAM: Shortness of breath FINDINGS: The chest is unchanged compared to 02/21/2019. Mild tortuosity and ectasia of the thoracic aorta. Presumed small hiatal hernia. Normal heart size. Calcified granulomatous disease in both hemithoraces. No acute pulmonary parenchymal or pleural abnormality. Probable complete rotator cuff tear with associated severe osteoarthritis and loose bodies in the rig ht shoulder. XR/XR chest 1V portable [id number] IMPRESSION: Stable chest with no acute abnormality.
--- NOTE | 2024-05-10 12:50 | ED_ITS ---
HPI - SOB/Dyspnea 2 General: Chief Complaint: Shortness of Breath/Dyspnea Stated Complaint: SOB Time Seen by Provider: 05/10/24 12:37 History of Present Illness: HPI Narrative: 79-year-old female with history of COPD, hypertension, hyperlipidemia and former tobacco abuse who quit smoking about 2 months ago who presents the emergency room with worsening shortness of breath. She has had cough. Possible fevers. She is already on doxycycline and steroids at home. No altered mental status no focal motor deficits. Some pleuritic chest pain. No abdominal pain. No nausea or vomiting. She has a frequent productive cough. On presentation her O2 sats are in the low 80s. Initially requiring 3 L. She is not on oxygen at home. Related Data Home Medications Medication Instructions Recorded Confirmed albuterol sulfate 90 mcg/actuation 2 puff inhalation Q6H PRN 11/13/19 05/10/24 aerosol inhaler (Ventolin HFA) Shortness Of Breath atorvastatin 20 mg tablet 40 mg PO DAILY 03/04/20 05/10/24 acetaminophen 325 mg tablet 650 mg PO QID PRN Fever Or Pain 05/10/24 05/10/24 (Tylenol) doxycycline hyclate 100 mg capsule 100 mg PO BID 05/10/24 05/10/24 famotidine 20 mg tablet 20 mg PO BID 05/10/24 05/10/24 [id number] 8 mg-folic 400 1 tab PO DAILY 05/10/24 05/10/24 mcg-K 50 mcg-lutein 300 mcg tablet (Centrum Silver Women) potassium citrate 99 mg capsule 99 mg PO BID 05/10/24 05/10/24 prednisone 20 mg tablet See Rx Instructions .Route .COMPLEX 05/10/24 05/10/24 psyllium husk 3.4 gram/5.4 gram 1 tbsp PO BID 05/10/24 05/10/24 oral powder (Metamucil) Previous Rx's Medication Instructions Recorded aspirin 81 mg tablet,delayed 81 mg PO DAILY #30 tabs 03/27/21 release (Deanna Low Dose Aspirin) Allergies Allergy/AdvReac Type Severity Reaction Status Date / Time codeine Allergy ADR-Vomitin Verified 09/02/21 10:11 g Penicillins Allergy ALGY-Anaphy Verified 09/02/21 10:11 laxis Sulfa (Sulfonamide Allergy ALGY-Rash Verified 09/02/21 10:11 Antibiotics) Review of Systems 2 Narrative: Constitutional symptoms: Negative except as documented in HPI. Skin symptoms: Negative except as documented in HPI. Eye symptoms: Negative except as documented in HPI. ENMT symptoms: Negative except as documented in HPI. Respiratory symptoms: Negative except as documented in HPI. Cardiovascular symptoms: Negative except as documented in HPI. Gastrointestinal symptoms: Negative except as documented in HPI. Genitourinary symptoms: Negative except as documented in HPI. Musculoskeletal symptoms: Negative except as documented in HPI. Neurologic symptoms: Negative except as documented in HPI. Psychiatric symptoms: Negative except as documented in HPI. Endocrine symptoms: Negative except as documented in HPI. PFSH ED 2 PFSH: Medical History (Updated 05/10/24 @ 14:19 by Elizabeth Rushing MD) Rheumatoid arthritis Hyperlipidemia TIA (transient ischemic attack) GERD (gastroesophageal reflux disease) Hypertension IBS (irritable bowel syndrome) Family History (Updated 09/02/21 @ 10:24 by Tennille Castro LPN) Other CAD (coronary artery disease) Diabetes Hyperlipidemia Hypertension Lung disease Lupus Rheumatoid arthritis Stroke Denies family history of Chronic kidney disease (CKD) Cancer Social History (Updated 09/02/21 @ 10:22 by Tennille Castro LPN) Smoking and tobacco/nicotine status: former use of tobacco/nicotine Quit status (tobacco/nicotine): has quit using Former quit date comment: 6 weeks Alcohol intake: former Former alcohol use details: a little bit of wine occasionally Physical Exam 2 Narrative: EXAM NARRATIVE: General: Alert, moderate distress. Skin: Warm, dry. Head: Normocephalic, atraumatic. Neck: Supple, trachea midline. Eye: Extraocular movements are intact. Ears, nose, mouth and throat: Oral mucosa moist. Cardiovascular: Regular rate and rhythm, Normal peripheral perfusion. Respiratory: coarse, scattered wheeze, moderate increased wob. tachypnea, prolonged expiratory phase. breath sounds are equal, Symmetrical chest wall expansion. Gastrointestinal: Soft, Nontender, Non distended, Normal bowel sounds. Musculoskeletal: Normal ROM, no deformity. Neurological: Alert and oriented to person, place, time, and situation, No focal neurological deficit observed. Psychiatric: Cooperative, appropriate mood & affect. Course 2 Vital Signs: Vital signs: Vital Signs Temperature 98.1 F 05/10/24 12:30 Pulse Rate 89 05/10/24 13:00 Respiratory Rate 18 05/10/24 12:58 Blood Pressure 122/85 05/10/24 12:30 Pulse Oximetry 92 05/10/24 12:58 Oxygen Delivery Me thod Nasal Cannula 05/10/24 12:58 Oxygen Flow Rate 3 05/10/24 12:58 MDM - SOB/Dyspnea Medical Decision Making Differential diagnosis for patient with shortness of breath includes but is not limited to and based on the above HPI, review of systems and physical exam: Pneumonia. Bronchitis. Asthma or COPD with acute exacerbation. Acute coronary syndrome / CA. Pulmonary embolism. Anxiety. Congestive heart failure. Viral infections including influenza and Covid-19. Atrial fibrillation. Anxiety. Pleural effusion. Pneumothorax. Orders placed to evaluate differential diagnosis based on the above differential, HPI and physical exam EKG: Time 1225. Rate 88. Normal sinus rhythm, No ST-T changes, no ectopy, right bundle branch block, This was reviewed and interpreted by myself the ER physician at 1230 AB.48/45/46 with an O2 sat of 81% on 3 L nasal cannula. Definite hypoxemic respiratory failure without hypercapnia. Chest x-ray: No acute process. No infiltrate. No pneumothorax. This was reviewed and interpreted by myself the emergency room physician. I also reviewed the radiology report. Lab Review: Laboratory results were reviewed and interpreted by myself the emergency room physician. Patient has some leukocytosis with white count 12.75. She has been on steroids. No anemia. No renal failure. Initial troponin is 12. proBNP is not elevated. It is 243. I reviewed the patient's medical record. Reexamination: Patient still with moderate increased work of breathing on 6 L nasal cannula. She has had continued increased oxygen requirements. Still with wheeze and tight lungs. Consultation: I spoke with Dr. Crook who is on-call for the hospitalist service. She agrees to admission to the ICU. Assessment and plan: COPD with acute exacerbation Hypoxemic respiratory failure Failed outpatient therapy ?Patient requiring around 6 L nasal cannula. I have given her 2 updrafts here. IV Solu-Medrol. She was on doxycycline so I gave her Rocephin and azithromycin here. -I discussed the patient with the hospitalist on-call who is admitting the patient. - Discussed findings and plan with patient. Answered any questions. - All laboratory values were reviewed and interpreted personally by myself, the ER physician - All imaging was reviewed and interpreted personally by myself, the ER physician. - Evaluation and treatment of this problem were appropriate in the emergency setting Critical care -I spent a total of >35 minutes of critical care time managing the patient, independent of any other practitioner. -The time involved in the performance of separately reportable procedures was not counted towards critical care time. Lab Data 05/10/24 12:58 05/10/24 12:58 Labs/Radiology: Radiology Impressions Chest X-Ray 05/10/24 12:49 IMPRESSION: Stable chest with no acute abnormality. Laboratory Results WBC 12.75 10^3/uL (3.29-11.43) H 05/10/24 12:58 RBC 4.12 10^6/uL (3.85-5.65) 05/10/24 12:58 Hgb 13.20 g/dL (11.27-16.99) 05/10/24 12:58 Hct 39.4 % (36-47) 05/10/24 12:58 MCV 95.6 fl (85-98) 05/10/24 12:58 MCH 32.0 pg (27-33) 05/10/24 12:58 MCHC 33.5 g/dL (30-55) 05/10/24 12:58 RDW 13.4 % (12.1-15.1) 05/10/24 12:58 Plt Count 298 10^3/cmm (157-399) 05/10/24 12:58 MPV 9.4 fL (7.4-10.4) 05/10/24 12:58 Neut % (Auto) 83.3 % 05/10/24 12:58 Lymph % (Auto) 12.0 % 05/10/24 12:58 [place] % (Auto) 3.2 % 05/10/24 12:58 Eos % (Auto) 0.1 % 05/10/24 12:58 Baso % (Auto) 0.2 % 05/10/24 12:58 Neut # (Auto) 10.63 10^3/uL (1.8-7.7) H 05/10/24 12:58 Lymph # (Auto) 1.5 10^3/uL (0.8-4.8) 05/10/24 12:58 [place] # (Auto) 0.4 10^3/uL (0.2-0.9) 05/10/24 12:58 Eos # (Auto) 0.0 10^3/uL (0.0-0.8) 05/10/24 12:58 Baso # (Auto) 0.0 10^3/uL (0.0-0.1) 05/10/24 12:58 Nucleated RBC % (auto) 0.2 % 05/10/24 12:58 Nucleated RBCs # 0.0 /100WBC 05/10/24 12:58 Specimen Type Arterial 05/10/24 12:58 Sample Site Brachial, left 05/10/24 12:58 ABG pH 7.48 (7.35-7.45) H 05/10/24 12:58 ABG pCO2 45.7 mmHg (35-45) H 05/10/24 12:58 ABG pO2 45.9 mmHg (80.0-100.0) L 05/10/24 12:58 ABG PO2/FiO2 Ratio 143 05/10/24 12:58 ABG HCO3 33.9 mmol/L (22-26) H 05/10/24 12:58 ABG O2 Saturation 81.0 05/10/24 12:58 ABG Base Excess 9.0 mmol/L (-2.0-2.0) H 05/10/24 12:58 Rufino Test Pos 05/10/24 12:58 A-a O2 Gradient 16.1 mmHg (5-10) H 05/10/24 12:58 Hematocrit 42.4 % (37-47) 05/10/24 12:58 Hgb O2 Saturation 79.3 % (95-100) L 05/10/24 12:58 Carboxyhemoglobin 1.2 %THgb (0.4-20.1) 05/10/24 12:58 Methemoglobin 0.9 % (0.4-1.5) 05/10/24 12:58 Total Hemoglobin 13.8 g/dL (12-16) 05/10/24 12:58 Sodium 139.0 mmol/L (131-143) 05/10/24 12:58 Potassium 3.3 mmol/L (3.5-5.0) L 05/10/24 12:58 Glucose 121.0 mg/dL (70-115) H 05/10/24 12:58 Ionized Calcium 1.1 mmol/L (1.1-1.4) 05/10/24 12:58 O2 Delivery Device Nc 05/10/24 12:58 O2 Liters/Min 3.0 % 05/10/24 12:58 FiO2 32.0 % 05/10/24 12:58 Irrigation Foreman ID Cak 05/10/24 12:58 Sodium 137 mmol/L (136-145) 05/10/24 12:58 Potassium 3.6 mmol/L (3.5-5.1) 05/10/24 12:58 Chloride 95 mmol/L (98-107) L 05/10/24 12:58 Carbon Dioxide 29 mmol/L (22-29) 05/10/24 12:58 Anion Gap 16.6 (5-19) 05/10/24 12:58 BUN 8 mg/dL (8-23) 05/10/24 12:58 Creatinine 0.7 mg/dL (0.5-0.9) 05/10/24 12:58 GFR Calculation Not Reportable 05/10/24 12:58 Glucose 126 mg/dL (65-115) H 05/10/24 12:58 Calculated Osmolality 284 mOsm/kg (285-295) L 05/10/24 12:58 Lactic Acid 2.1 mmol/L (0.5-2.2) 05/10/24 12:58 Calcium 9.0 mg/dL (8.5-10.5) 05/10/24 12:58 Total Bilirubin 0.5 mg/dL (0.15-1.2) 05/10/24 12:58 AST 30 U/L (0-32) 05/10/24 12:58 ALT 23 U/L (0-33) 05/10/24 12:58 Alkaline Phosphatase 48 U/L (35-105) 05/10/24 12:58 Troponin T Baseline 12 ng/L (0-10) H 05/10/24 12:58 NT-Pro-B Natriuret Pep 243 pg/mL (0-450) 05/10/24 12:58 Total Protein 6.3 g/dL (6.6-8.7) L 05/10/24 12:58 Albumin 3.8 g/dL (3.5-5.2) 05/10/24 12:58 Globulin 2.5 g/dL (1.3-4.6) 05/10/24 12:58 All radiology interpretation(s) finalized by discharge Discharge Plan Discharge Patient Disposition: Admitted As Inpatient Clinical Impression: Acute exacerbation of chronic obstructive airways disease, Acute hypoxemic respiratory failure Condition: Stable Coding Level of Care Code ED Supervisor Wound for Shantelle Arguelles
[2024-05-10] MEDS: albuterol 2.5 mg/3 mL Neb INHALATION (12:55)
[2024-05-10] MEDS: ipratropium-albuterol 3 mL Neb INHALATION ×3 (12:55→22:19)
[2024-05-10 13:06] LABS: Basophils % 0.2 %; Eosinophils % 0.1 %; Hematocrit 39.4 % (36-47); Lymphocytes # 1.5 10^3/uL (0.8-4.8); Mean Corpuscular HGB Conc 33.5 g/dL (30-55); Mean Corpuscular Volume 95.6 fl (85-98); Mean Platelet Volume 9.4 fL (7.4-10.4); Monocytes # 0.4 10^3/uL (0.2-0.9); Monocytes % 3.2 %; Neutrophils # 10.63 10^3/uL (1.8-7.7); Neutrophils % 83.3 %; Nucleated Red Blood Cells % 0.2 %; Platelet Count 298 10^3/cmm (157-399); Red Blood Count 4.12 10^6/uL (3.85-5.65); Red Cell Distribution Width 13.4 % (12.1-15.1); White Blood Count 12.75 10^3/uL (3.29-11.43)
[2024-05-10 13:09] LABS: ABG PCO2 45.7 mmHg (35-45); ABG PH Result 7.48 (7.35-7.45); Alveolar-Arterial Oxygen Gradi 16.1 mmHg (5-10); Arterial Blood Gas Hematocrit 42.4 % (37-47); Blood Gas Allen Test Pos; Blood Gas Operator Identificat CAK; Blood Gas Sample Site Brachial, left; Blood Gas Sample Type Arterial; Carboxyhemoglobin 1.2 %THgb (0.4-20.1); HCO3 ABG 33.9 mmol/L (22-26); HGB O2 Sat 79.3 % (95-100); Ionized Calcium Level - ABG 1.1 mmol/L (1.1-1.4); Methemoglobin 0.9 % (0.4-1.5); Oxygen Device NC; PO2 ABG 45.9 mmHg (80.0-100.0); PO2 FiO2 Ratio Arterial Blood 143; Potassium Level - ABG 3.3 mmol/L (3.5-5.0); Total Hemoglobin 13.8 g/dL (12-16)
[2024-05-10 13:24] LABS: Troponin(5th) Baseline 12 ng/L (0-10)
[2024-05-10 13:25] LABS: Lactic Sepsis W/Reflex 2.1 mmol/L (0.5-2.2)
[2024-05-10] MEDS: methylPREDNISolone sod succ 125 mg/2 mL INJ IVP (13:27)
[2024-05-10 13:53] LABS: Alanine Aminotransferase 23 U/L (0-33); Albumin Level 3.8 g/dL (3.5-5.2); Alkaline Phosphatase 48 U/L (35-105); Anion Gap 16.6 (5-19); Aspartate Amino Transferase 30 U/L (0-32); Blood Urea Nitrogen 8 mg/dL (8-23); Carbon Dioxide 29 mmol/L (22-29); Chloride 95 mmol/L (98-107); Creatinine Clr Calc Pharmacy 50.6494; Globulin 2.5 g/dL (1.3-4.6); Glucose 126 mg/dL (65-115); NT Pro B Type Natriuretic Pept 243 pg/mL (0-450); Osmolality Calculated 284 mOsm/kg (285-295); Potassium 3.6 mmol/L (3.5-5.1); Sodium 137 mmol/L (136-145); Total Bilirubin 0.5 mg/dL (0.15-1.2); Total Protein 6.3 g/dL (6.6-8.7)
--- NOTE | 2024-05-10 14:18 | CTR_ITS ---
PROCEDURE INFORMATION: Exam: CTA Chest With Contrast Exam date and time: 05/10/2024 3:04 PM Age: 79 years old Clinical indication: Shortness of breath; Additional info: R/O pe, copd exacerbation TECHNIQUE: Imaging protocol: Computed tomographic angiography of the chest with contrast. Exam focused on the arteries. 3D rendering (Not supervised by radiologist): MIP and/or 3D reconstructed images were created by the technologist. Radiation optimization: All CT scans at this facility use at least one of these dose optimization techniques: automated exposure control; mA and/or kV adjustment per patient size (includes targeted exams where dose is matched to clinical indication); or iterative reconstruction. Contrast material: OMNI 350; Contrast volume: 60 ml; Contrast route: INTRAVENOUS (IV); COMPARISON: CR XR chest 1V portable [id number] 05/10/2024 1:26 PM RADIATION DOSE METRICS: Total DLP (mGy-cm): 336.7 FINDINGS: Pulmonary arteries: Normal. No pulmonary emboli. Aorta: Unremarkable. No aortic aneurysm. No aortic dissection. Lungs: Focal area of scarring, traction bronchiectasis, and emphysematous changes at the medial/posterior right lung base. Tree-in-bud pulmonary micro nodules noted in the right middle lobe. No consolidation. No masses. Pleural spaces: Unremarkable. No pneumothorax. No pleural effusion. Heart: Unremarkable. No cardiomegaly. No pericardial effusion. Lymph nodes: Unremarkable. No enlarged lymph nodes. Bones/joints: Unremarkable. No acute fracture. Soft tissues: Unremarkable. CT/CT angio chest PE protcl [id number] IMPRESSION: 1. Tree-in-bud pulmonary micro nodules noted in the right middle lobe suggestive of small airway infectious or inflammatory process. 2. Negative for pulmonary embolism.
--- NOTE | 2024-05-10 14:28 | ECG_ITS ---
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1945 Requested By: Elizabeth Parisi Order Number: [id number] Reading MD: EDITH DRISCOLL Measurements Intervals [place] Rate: 84 P: 85 [place]: 155 QRS: 99 QRSD: 129 T: 75 QT: 391 QTc: 463 Interpretive Statements SINUS RHYTHM RIGHT BUNDLE BRANCH BLOCK [120+ ms QRS DURATION, UPRIGHT V1, 40+ ms S IN I/aVL/V4/V5/V6] SEPTAL MYOCARDIAL INFARCTION , OF INDETERMINATE AGE [40+ ms Q WAVE IN V1/V2] Compared to ECG 05/10/2024 12:25:10 No significant changes Electronically Signed On 05-10-2024 23:32:18 EKG TECH by EDITH DRISCOLL [email or web address]
--- NOTE | 2024-05-10 14:28 | P.HP_ITS ---
Providers/Chief Complaint 2 Primary Care Provider: Barbi Andrews Chief Complaint: SOB History of Present Illness Chauncey Greene is a 79 year old female with past medical history of hyperlipidemia, rheumatoid arthritis not on any medications, asthma however not on any inhalers or medications for it since it is very well-controlled, presented to the hospital for shortness of breath. She states she used her nebulizer however was unable to walk from living application because she became very short of breath. She is on used her inhaler which helped a little however was very short of breath and asked her daughter to come take her to the hospital. She is requiring 5 L nasal cannula right now saturating 95%. She is not on any oxygen at home. She states this all started in February with some kind of upper respiratory viral illness which did improve later but then she got sick again. She already finished a course of antibiotic steroids. Is currently on doxycycline 100 mg twice daily at home. She is having yellow sputum production. Denies any chest pain abdominal pain nausea vomiting diarrhea at this time. Daughter is accompanying her at bedside. Patient would like to be a full code. Medications/Allergies Home Medications Medication Instructions Recorded Confirmed Last Taken Type albuterol sulfate 90 mcg/actuation 2 puff inhalation Q6H PRN 11/13/19 05/10/24 05/10/24 History aerosol inhaler (Ventolin HFA) Shortness Of Breath atorvastatin 20 mg tablet 40 mg PO DAILY 03/04/20 05/10/24 05/10/24 History aspirin 81 mg tablet,delayed 81 mg PO DAILY #30 tabs 03/27/21 05/10/24 05/10/24 Rx release (Deanna Low Dose Aspirin) acetaminophen 325 mg tablet 650 mg PO QID PRN Fever Or Pain 05/10/24 05/10/24 Unknown History (Tylenol) doxycycline hyclate 100 mg capsule 100 mg PO BID 05/10/24 05/10/24 05/10/24 History famotidine 20 mg tablet 20 mg PO BID 05/10/24 05/10/24 05/10/24 History extuvicd-hdke-poda 8 mg-folic 400 1 tab PO DAILY 05/10/24 05/10/24 05/09/24 History mcg-K 50 mcg-lutein 300 mcg tablet (Centrum Silver Women) potassium citrate 99 mg capsule 99 mg PO BID 05/10/24 05/10/24 05/09/24 History prednisone 20 mg tablet See Rx Instructions .Route .COMPLEX 05/10/24 05/10/24 05/10/24 History psyllium husk 3.4 gram/5.4 gram 1 tbsp PO BID 05/10/24 05/10/24 05/09/24 History oral powder (Metamucil) Allergies Allergy/AdvReac Type Severity Reaction Status Date / Time codeine Allergy ADR-Vomitin Verified 09/02/21 10:11 g Penicillins Allergy ALGY-Anaphy Verified 09/02/21 10:11 laxis Sulfa (Sulfonamide Allergy ALGY-Rash Verified 09/02/21 10:11 Antibiotics) PFSH Acute 2 PFSH: Medical History (Updated 05/11/24 @ 14:11 by Michelle Crook MD) Rheumatoid arthritis Hyperlipidemia TIA (transient ischemic attack) GERD (gastroesophageal reflux disease) Hypertension IBS (irritable bowel syndrome) Family History (Updated 09/02/21 @ 10:24 by Tennille Castro LPN) Other CAD (coronary artery disease) Diabetes Hyperlipidemia Hypertension Lung disease Lupus Rheumatoid arthritis Stroke Denies family history of Chronic kidney disease (CKD) Cancer Social History (Updated 09/02/21 @ 10:22 by Tennille Castro LPN) Smoking and tobacco/nicotine status: former use of tobacco/nicotine Quit status (tobacco/nicotine): has quit using Former quit date comment: 6 weeks Alcohol intake: former Former alcohol use details: a little bit of wine occasionally Vitals/I&O/Wt Last Vital Signs Temp 98.1 F 05/10/24 12:30 Pulse 89 05/10/24 13:00 Resp 18 05/10/24 12:58 BP 122/85 05/10/24 12:30 Pulse Ox 92 05/10/24 12:58 O2 Del Method Nasal Cannula 05/10/24 12:58 O2 Flow Rate 3 05/10/24 12:58 Weight last 48 hrs Weight 64.41 kg Physical Exam 2 Narrative: General: Alert oriented x3, patient seen sitting up in bed extending her torso and having some difficulty breathing but saturating okay on 5 L nasal cannula. No conversational dyspnea. No acute respiratory distress. HEENT: Normocephalic, atraumatic, EOMI, Cardio: Regular rate rhythm, normal S1-S2, Respiratory: Diffuse rhonchi bilaterally GI: Abdomen soft, nontender, nondistended, bowel sounds + Extremities: No edema bilateral lower extremities Data 05/11/24 04:19 05/11/24 04:19 Micro: Microbiology 05/10/24 12:58 Blood Culture - Preliminary Blood SPECIMEN COLLECTED A&P Assessment and plan (1) Hypertension: (2) Hyperlipidemia: (3) GERD (gastroesophageal reflux disease): (4) Rheumatoid arthritis: (5) Acute exacerbation of chronic obstructive airways disease: (6) Asthma: (7) Right middle lobe pneumonia: Plan #Shortness of breath #Right middle lobe pneumonia #History of rheumatoid arthritis #History of asthma #Hyperlipidemia #New oxygen supplementation ? Check sputum Gram stain culture ? Check blood cultures ? Placed on Solu-Medrol 40 IV twice daily ? Check respiratory viral panel. ? CTA chest ruled out PE. ? Patient requiring supplemental oxygen at this time. Wean off as able. ? Low threshold for intubation. Patient would like to be full code. Will admit to ICU at this time for closer monitoring ? ABG shows O2 45 on admission. ? Patient states she did not take any methotrexate or other medications for her rheumatoid for last few years. Denies any nighttime awakenings or daytime respiratory distress requiring use of albuterol. ? Her nebulizer is from [place] from a long time ago and she used it since she had it at home. ? Will place on vancomycin and aztreonam for empiric coverage of antibiotics, add levofloxacin for dual pseudomonal coverage Full code DVT prophylaxis: Heparin SQ twice daily Attestations 2 Medical Necessity Statement*: Greater than 2 midnight stay for management of right middle lobe pneumonia, hypoxia requiring 5 L nasal cannula. Diagnoses Hypertension I10 Hyperlipidemia E78.5 GERD (gastroesophageal reflux disease) K21.9 Rheumatoid arthritis M06.9 Acute exacerbation of chronic obstructive airways disease J44.1 Asthma J45.909 Right middle lobe pneumonia J18.9
[2024-05-10] MEDS: cefTRIAXone 1,000 mg SDV 1000 MG IVP (14:38)
[2024-05-10] MEDS: AZITHROMYCIN ADD-Vantage 500 MG in 0.9% NaCl ADD-Vantage 250 ML 250 MG IV (14:41)
[2024-05-10 14:52] LABS: Reflex Lactate Order REFLEX LACTIC ORDERD
[2024-05-10] MEDS: iohexol 350 mg/mL 500 mL Btl (per mL) IV (15:11)
[2024-05-10 15:36] LABS: Adenovirus Not Detected (NOT DETECT); Chlamydia Pneumoniae Not Detected (NOT DETECT); Coronavirus 229E,HKU1,NL63,OC4 Not Detected (NOT DETECT); Human Metapneumovirus Not Detected (NOT DETECT); Human Rhinovirus/Enterovirus Not Detected (NOT DETECT); Influenza A Not Detected (NOT DETECT); Influenza A H1 Not Detected (NOT DETECT); Influenza A H1-2009 Detected (NOT DETECT); Influenza A H3 Not Detected (NOT DETECT); Influenza B Not Detected (NOT DETECT); Mycoplasma Pneumoniae Not Detected (NOT DETECT); Parainfluenza Virus Type 1 Not Detected (NOT DETECT); Parainfluenza Virus Type 2 Not Detected (NOT DETECT); Parainfluenza Virus Type 3 Not Detected (NOT DETECT); Parainfluenza Virus Type 4 Not Detected (NOT DETECT); Respiratory Syncytial Virus A Not Detected (NOT DETECT); Respiratory Syncytial Virus B Not Detected (NOT DETECT); SARS-COV-2 Not Detected (NOT DETECT)
[2024-05-10 16:21] LABS: Troponin 5 2HR 10.48 ng/L (0-10); Troponin 5 2HR Delta -1.52 ABS# (0-10)
[2024-05-10 16:23] LABS: Lactic Acid level (Lactate) 1.5 mmol/L (0.5-2.2)
--- NOTE | 2024-05-10 16:44 | PHA.VACGOAL ---
Vancomycin Goal - Goal Vancomycin Goal:: 15-20 mg/L Vancomycin Indication:: Pneumonia - Therapy Current therapy:: Other Antibiotic Day of therpy:: Day []of [] . Actual body weight (kg): 142 lb - Data Labs: WBC 12.75 10^3/uL (3.29-11.43) H 05/10/24 12:58 RBC 4.12 10^6/uL (3.85-5.65) 05/10/24 12:58 Hgb 13.20 g/dL (11.27-16.99) 05/10/24 12:58 Hct 39.4 % (36-47) 05/10/24 12:58 MCV 95.6 fl (85-98) 05/10/24 12:58 MCH 32.0 pg (27-33) 05/10/24 12:58 MCHC 33.5 g/dL (30-55) 05/10/24 12:58 RDW 13.4 % (12.1-15.1) 05/10/24 12:58 Sodium 137 mmol/L (136-145) 05/10/24 12:58 Potassium 3.6 mmol/L (3.5-5.1) 05/10/24 12:58 Chloride 95 mmol/L (98-107) L 05/10/24 12:58 Carbon Dioxide 29 mmol/L (22-29) 05/10/24 12:58 Anion Gap 16.6 (5-19) 05/10/24 12:58 BUN 8 mg/dL (8-23) 05/10/24 12:58 Creatinine 0.7 mg/dL (0.5-0.9) 05/10/24 12:58 GFR Calculation Not Reportable 05/10/24 12:58 Treatment plan:: new consult Regimen:: 2000 MG LOAD FOLLOWED BY 500MG Q12H
[2024-05-10] MEDS: vancomycin 2,000 MG/400 ML PIGGYBACK 200 MG IV (16:57)
[2024-05-10] MEDS: levofloxacin-dextrose 5 % 750 MG/150 ML PREMIX 100 MG IV (16:57)
[2024-05-10] MEDS: aztreonam 1,000 MG in sodium chloride 0.9% (plus) 50 ML 100 MG IV (16:58)
[2024-05-10] MEDS: lanolin oint 7 gm 1 APPLIC TOPICAL (17:20)
[2024-05-10 17:35] LABS: Procalcitonin 0.03 ng/mL (0-0.5)
--- NOTE | 2024-05-10 17:36 | ECG_ITS ---
[facility] Test Date: 2024-05-10 Pat Name: Chauncey Greene Department: Room: [facility] Gender: Female Deputy County Counsel: : 1945 Requested By: Elizabeth Parisi Order Number: [id number] Letty MD: EDITH DRISCOLL Measurements Intervals [place] Rate: 85 P: 85 FL: 159 QRS: 89 QRSD: 127 T: 58 QT: 406 QTc: 484 Interpretive Statements SINUS RHYTHM POSSIBLE LEFT ATRIAL ENLARGEMENT [-0.1mV P-WAVE IN V1/V2] RIGHT BUNDLE BRANCH BLOCK [120+ ms QRS DURATION, UPRIGHT V1, 40+ ms S IN I/aVL/V4/V5/V6] SEPTAL MYOCARDIAL INFARCTION , OF INDETERMINATE AGE [40+ ms Q WAVE IN V1/V2] Compared to ECG 05/10/2024 14:28:47 No significant changes Electronically Signed On 05-10-2024 23:31:26 LINK TRAINER TEACHER by EDITH DRISCOLL [email or web address]
[2024-05-10 17:47] LABS: C Reactive Protein 3.9 mg/L (0.0-4.9)
[2024-05-10] MEDS: methylPREDNISolone sod succ 40 mg/mL INJ IVP (22:40)
[2024-05-11] VITALS (31 sets, daily range): BP systolic 108–165; BP diastolic 62–103; PULSE 75–98; RESP 16–32; TEMP 36.4–37.2; O2SAT 89–97
[2024-05-11] MEDS: aztreonam 1,000 MG in sodium chloride 0.9% (plus) 50 ML 100 MG IV (03:59)
[2024-05-11] MEDS: vancomycin 500 MG in sodium chloride 0.9% (plus) 100 ML 200 MG IV (04:45)
[2024-05-11 04:58] LABS: Basophils % 0.2 %; Hematocrit 38.9 % (36-47); Lymphocytes # 1.2 10^3/uL (0.8-4.8); Lymphocytes % 14.8 %; Mean Corpuscular HGB Conc 33.2 g/dL (30-55); Mean Corpuscular Hemoglobin 32.4 pg (27-33); Mean Corpuscular Volume 97.7 fl (85-98); Mean Platelet Volume 9.5 fL (7.4-10.4); Monocytes # 0.4 10^3/uL (0.2-0.9); Monocytes % 4.5 %; Neutrophils # 6.55 10^3/uL (1.8-7.7); Neutrophils % 79.4 %; Nucleated Red Blood Cells % 0 %; Platelet Count 305 10^3/cmm (157-399); Red Blood Count 3.98 10^6/uL (3.85-5.65); Red Cell Distribution Width 13.1 % (12.1-15.1); White Blood Count 8.25 10^3/uL (3.29-11.43)
[2024-05-11 05:19] LABS: Alanine Aminotransferase 20 U/L (0-33); Albumin Level 3.5 g/dL (3.5-5.2); Alkaline Phosphatase 47 U/L (35-105); Anion Gap 14.8 (5-19); Aspartate Amino Transferase 26 U/L (0-32); Blood Urea Nitrogen 7 mg/dL (8-23); Carbon Dioxide 29 mmol/L (22-29); Chloride 97 mmol/L (98-107); Creatinine Clr Calc Pharmacy 48.8661; Globulin 2.9 g/dL (1.3-4.6); Glucose 151 mg/dL (65-115); Osmolality Calculated 285 mOsm/kg (285-295); Potassium 3.8 mmol/L (3.5-5.1); Sodium 137 mmol/L (136-145); Total Bilirubin 0.4 mg/dL (0.15-1.2); Total Protein 6.4 g/dL (6.6-8.7)
[2024-05-11] MEDS: ipratropium-albuterol 3 mL Neb INHALATION ×4 (07:48→20:28)
[2024-05-11] MEDS: atorvastatin 40 mg Tablet PO (08:31)
[2024-05-11] MEDS: aspirin 81 mg EC Tablet PO (08:31)
[2024-05-11] MEDS: famotidine 20 mg/2 mL INJ IVP ×2 (11:12→19:32)
[2024-05-11] MEDS: methylPREDNISolone sod succ 40 mg/mL INJ IVP ×2 (11:12→22:19)
--- NOTE | 2024-05-11 14:12 | PM.PN ---
Subjective Subjective: Seen this morning. Patient feeling a lot better. She is positive for influenza On 1 L nasal cannula saturating 90% at this time. Resting comfortably in recliner with family ember at bedside. Vitals/I&O/Wt Last Vital Signs Temp 97.6 F 05/11/24 04:14 Pulse 94 05/11/24 12:00 Resp 32 H 05/11/24 12:00 BP 153/70 05/11/24 12:00 Pulse Ox 90 05/11/24 12:00 O2 Del Method Nasal Cannula 05/11/24 12:00 O2 Flow Rate 1 05/11/24 12:00 05/10/24 05/11/24 05/11/24 22:59 06:59 14:59 Intake Total 850 / 850 150 / 1000 50 / 50 Output Total 800 / 800 450 / 1250 Balance 50 / 50 -300 / -250 50 / 50 Weight last 48 hrs Weight 59.375 kg Weight 59.5 kg Weight 64.41 kg Physical Exam Narrative: General: Alert oriented x3, on 1 L nasal cannula, feeling better HEENT: Normocephalic, atraumatic, EOMI, Cardio: Regular rate rhythm, normal S1-S2, Respiratory: Lungs clear to auscultation bilaterally no wheezes no rhonchi GI: Abdomen soft, nontender, nondistended, bowel sounds + Extremities: No edema bilateral lower extremities Data 05/11/24 04:19 05/11/24 04:19 Micro: Microbiology 05/10/24 12:58 Blood Culture - Preliminary Blood NEGATIVE TO DATE 05/10/24 18:30 Legionella Urinary Antigen - Final Urine,Voided Bacterial Antigens - Final 05/10/24 14:03 Blood Culture - Preliminary Blood SPECIMEN COLLECTED A&P Assessment and plan (1) Hypertension: (2) Hyperlipidemia: (3) GERD (gastroesophageal reflux disease): (4) Rheumatoid arthritis: (5) Acute exacerbation of chronic obstructive airways disease: (6) Asthma: (7) Right middle lobe pneumonia: Plan #Shortness of breath #Right middle lobe pneumonia #History of rheumatoid arthritis #History of asthma #Hyperlipidemia #New oxygen supplementation ? Check sputum Gram stain culture ? Check blood cultures ? Placed on Solu-Medrol 40 IV twice daily ? Check respiratory viral panel. ? CTA chest ruled out PE. ? Patient requiring supplemental oxygen at this time. Wean off as able. ? Low threshold for intubation. Patient would like to be full code. Will admit to ICU at this time for closer monitoring ? ABG shows O2 45 on admission. ? Patient states she did not take any methotrexate or other medications for her rheumatoid for last few years. Denies any nighttime awakenings or daytime respiratory distress requiring use of albuterol. ? Her nebulizer is from [place] from a long time ago and she used it since she had it at home. ? Will place on vancomycin and aztreonam for empiric coverage of antibiotics, add levofloxacin for dual pseudomonal coverage Full code DVT prophylaxis: Heparin SQ twice daily 05/10/2024 -Patient positive for influenza. ? Will start Tamiflu ? Continue Solu-Medrol 40 IV twice daily and de-escalate starting tomorrow. ? Wean off oxygen as able. Currently on 1 L nasal cannula. ? Will require albuterol inhaler at discharge and oral steroids along with antibiotics. ? Await sputum culture Gram stain MRSA nares swab procalcitonin ? Patient is improving. ? Will transfer to [facility] floor today. ? If continues to do well we will consider discharging home tomorrow. Attestations Medical Necessity Statement*: Potential discharge in a.m. if continues to show improvement. Diagnoses Hypertension I10 Hyperlipidemia E78.5 GERD (gastroesophageal reflux disease) K21.9 Rheumatoid arthritis M06.9 Acute exacerbation of chronic obstructive airways disease J44.1 Asthma J45.909 Right middle lobe pneumonia J18.9
[2024-05-11 14:34] LABS: Procalcitonin 0.02 ng/mL (0-0.5)
[2024-05-11] MEDS: oseltamivir phosphate 75 mg Capsule PO ×2 (15:14→17:05)
[2024-05-11] MEDS: heparin 5,000 unit/mL INJ 1 mL 5000 UNIT SUBCUT (15:14)
[2024-05-11] MEDS: sodium chloride 0.9% 1,000 ML 75 ML IV (15:15)
[2024-05-11] MEDS: levofloxacin-dextrose 5 % 750 MG/150 ML PREMIX 100 MG IV (17:05)
[2024-05-11 18:53] LABS: MRSA PCR OZH (swab) NOT DETECTED (Not Detecte)
[2024-05-12] VITALS (30 sets, daily range): BP systolic 82–168; BP diastolic 36–101; PULSE 70–99; RESP 15–28; TEMP 36.9–37.2; O2SAT 88–97
[2024-05-12] MEDS: heparin 5,000 unit/mL INJ 1 mL 5000 UNIT SUBCUT ×2 (02:11→15:32)
[2024-05-12] MEDS: sodium chloride 0.9% 1,000 ML 75 ML IV (04:27)
[2024-05-12 06:27] LABS: Basophils % 0.1 %; Hematocrit 41.2 % (36-47); Lymphocytes # 1.2 10^3/uL (0.8-4.8); Lymphocytes % 13.3 %; Mean Platelet Volume 10.4 fL (7.4-10.4); Monocytes # 0.4 10^3/uL (0.2-0.9); Monocytes % 4.5 %; Neutrophils # 7.06 10^3/uL (1.8-7.7); Neutrophils % 81.4 %; Nucleated Red Blood Cells % 0 %; Platelet Count 253 10^3/cmm (157-399); Positive C 1; Red Blood Count 4.12 10^6/uL (3.85-5.65); Red Cell Distribution Width 13.2 % (12.1-15.1); White Blood Count 8.67 10^3/uL (3.29-11.43)
[2024-05-12 06:51] LABS: Albumin Level 3.5 g/dL (3.5-5.2); Alkaline Phosphatase 40 U/L (35-105); Blood Urea Nitrogen 10 mg/dL (8-23); Calcium 8.6 mg/dL (8.5-10.5); Carbon Dioxide 24 mmol/L (22-29); Chloride 94 mmol/L (98-107); Creatinine Clr Calc Pharmacy 48.8661; Globulin 2.3 g/dL (1.3-4.6); Glucose 136 mg/dL (65-115); Osmolality Calculated 275 mOsm/kg (285-295); Sodium 132 mmol/L (136-145); Total Bilirubin 0.4 mg/dL (0.15-1.2); Total Protein 5.8 g/dL (6.6-8.7)
[2024-05-12 06:53] LABS: Alanine Aminotransferase 19 U/L (0-33); Anion Gap 18.6 (5-19); Aspartate Amino Transferase 29 U/L (0-32); Potassium 4.6 mmol/L (3.5-5.1)
[2024-05-12] MEDS: ipratropium-albuterol 3 mL Neb INHALATION ×4 (07:43→19:43)
[2024-05-12] MEDS: aspirin 81 mg EC Tablet PO (08:32)
[2024-05-12] MEDS: atorvastatin 40 mg Tablet PO (08:32)
[2024-05-12] MEDS: oseltamivir phosphate 75 mg Capsule PO ×2 (08:32→18:05)
[2024-05-12] MEDS: psyllium powder Pkt 1 PACKET PO (11:23)
[2024-05-12] MEDS: methylPREDNISolone sod succ 40 mg/mL INJ IVP ×2 (11:23→22:52)
[2024-05-12] MEDS: levofloxacin-dextrose 5 % 750 MG/150 ML PREMIX 100 MG IV (15:31)
--- NOTE | 2024-05-12 15:55 | P.PN_ITS ---
Subjective 2 Subjective: Seen this morning. Patient appears more short of breath this morning. Requiring 2 L nasal cannula. Respiratory therapist ambulated the patient and patient became significantly short of breath and had difficulty making it back to her chair. Saturations did not drop however she was very short of breath. Vitals/I&O/Wt Last Vital Signs Temp 98.4 F 05/12/24 09:00 Pulse 88 05/12/24 15:22 Resp 16 05/12/24 15:15 BP 82/56 05/12/24 12:00 Pulse Ox 93 05/12/24 15:15 O2 Del Method Nasal Cannula 05/12/24 15:15 O2 Flow Rate 2 05/12/24 15:15 05/12/24 05/12/24 05/12/24 06:59 14:59 22:59 Intake Total 990 / 1310 120 / 120 Output Total 825 / 2125 425 / 425 Balance 165 / -815 -305 / -305 Weight last 48 hrs Weight 59.375 kg Weight 59.375 kg Weight 59.5 kg Physical Exam 2 Narrative: General: Alert oriented x3, on 2 L nasal cannula, HEENT: Normocephalic, atraumatic, EOMI, Cardio: Regular rate rhythm, normal S1-S2, Respiratory: Mild diffuse wheezing all throughout lung king. Worsened compared to yesterday. GI: Abdomen soft, nontender, nondistended, bowel sounds + Extremities: No edema bilateral lower extremities Data 05/12/24 06:19 05/12/24 06:19 Micro: Microbiology 05/10/24 14:03 Blood Culture - Preliminary Blood NEGATIVE TO DATE 05/10/24 12:58 Blood Culture - Preliminary Blood NEGATIVE TO DATE A&P Assessment and plan (1) Hypertension: (2) Hyperlipidemia: (3) GERD (gastroesophageal reflux disease): (4) Rheumatoid arthritis: (5) Acute exacerbation of chronic obstructive airways disease: (6) Asthma: (7) Right middle lobe pneumonia: Plan #Shortness of breath #Right middle lobe pneumonia #History of rheumatoid arthritis #History of asthma #Hyperlipidemia #New oxygen supplementation ? Check sputum Gram stain culture ? Check blood cultures ? Placed on Solu-Medrol 40 IV twice daily ? Check respiratory viral panel. ? CTA chest ruled out PE. ? Patient requiring supplemental oxygen at this time. Wean off as able. ? Low threshold for intubation. Patient would like to be full code. Will admit to ICU at this time for closer monitoring ? ABG shows O2 45 on admission. ? Patient states she did not take any methotrexate or other medications for her rheumatoid for last few years. Denies any nighttime awakenings or daytime respiratory distress requiring use of albuterol. ? Her nebulizer is from [place] from a long time ago and she used it since she had it at home. ? Will place on vancomycin and aztreonam for empiric coverage of antibiotics, add levofloxacin for dual pseudomonal coverage Full code DVT prophylaxis: Heparin SQ twice daily 05/10/2024 -Patient positive for influenza. ? Will start Tamiflu ? Continue Solu-Medrol 40 IV twice daily and de-escalate starting tomorrow. ? Wean off oxygen as able. Currently on 1 L nasal cannula. ? Will require albuterol inhaler at discharge and oral steroids along with antibiotics. ? Await sputum culture Gram stain MRSA nares swab procalcitonin ? Patient is improving. ? [facility] ? If continues to do well we will consider discharging home tomorrow. 05/12/2024 -Continue Tamiflu ? Continue Solu-Medrol 40 IV twice daily at this time ? Patient significantly short of breath on exertion. Saturations are stable at 92% however subjectively very short of breath. Had difficulty making it back to the chair. Will check echocardiogram rule out other causes of shortness of breath on exertion ? She does have diffuse wheezing however for the most part lungs are clear to auscultation. ? Legionella antigen, bacterial antigens negative, blood cultures negative. ? Sputum culture Gram stain pending uncollected patient not expectorating at this time. Attestations 2 Medical Necessity Statement*: Requires continued hospitalization due to significant dyspnea on exertion. Diagnoses Hypertension I10 Hyperlipidemia E78.5 GERD (gastroesophageal reflux disease) K21.9 Rheumatoid arthritis M06.9 Acute exacerbation of chronic obstructive airways disease J44.1 Asthma J45.909 Right middle lobe pneumonia J18.9
--- NOTE | 2024-05-12 16:47 | USCV_ITS ---
Chauncey Greene Age: 79 Gender: F : 1945 Exam Date: 05/12/2024 17:47 Ordering Phys: Michelle Crook MD Technologist: Anival Knapp [place] [facility] [place]: dyspnea on exertion BP: 105 / 78 HR: 76 Rhythm: Sinus Technical Quality: Adequate MEASUREMENTS (Male / Female) Normal Values 2D ECHO LV Diastolic Diameter PLAX 4.2 cm 4.2 - 5.9 / 3.9 - 5.3 cm IVS Diastolic Thickness 1.2 cm 0.6 - 1.0 / 0.6 - 0.9 cm IVS Systolic Thickness 1.6 cm LVPW Diastolic Thickness 1.5 cm 0.6 - 1.0 / 0.6 - 0.9 cm LVPW Systolic Thickness 2.0 cm LVOT Diameter 2.0 cm LV Ejection Fraction 2D Teich 90.6 % LV Ejection Fraction MOD 4C 72.7 % LV Ejection Fraction MOD 2C 71.7 % LV Ejection Fraction 2C AL 74.1 % LA Diameter 3.2 cm RA Systolic Volume 4C AL 20.2 ml RA Systolic Volume 4C MOD 18.7 ml LA Sys Volume AL 24.8 cm cubed LA Sys Volume Index AL 15.2 cm cubed/m squared Aorta at Sinotubular Diameter 2.2 cm IVC Diameter 1.8 cm M-MODE LA Ao Ratio MM 1.4 AV Cusp Separation MM 1.7 cm DOPPLER LVOT Peak Velocity 130.0 cm/s MV Peak Velocity 124.0 cm/s MV Area PHT 2.5 cm squared Mitral E to A Ratio 0.7 TR Peak Velocity 281.0 cm/s TR Peak Gradient 31.6 mmHg TR Mean Velocity 197.0 cm/s TR Mean Gradient 18.4 mmHg TR Velocity Time Integral 93.0 cm PV Peak Velocity 122.0 cm/s RV Ejection Time 0.3 s FINDINGS Left Ventricle Normal left ventricular size, systolic function and wall thickness, with no regional wall motion abnormalities. Left ventricular ejection fraction is estimated at 60 %. Grade I/IV diastolic dysfunction (abnormal relaxation filling pattern), normal to mildly elevated filling pressures. Right Ventricle The right ventricle is normal in size and function. Right Atrium The right atrium is normal in size. Left Atrium The left atrium is normal in size. Mitral Valve Structurally normal mitral valve without significant stenosis or prolapse. There is no mitral regurgitation. Aortic Valve Structurally normal aortic valve without significant sclerosis or stenosis. There is no aortic regurgitation. Tricuspid Valve Structurally normal tricuspid valve without significant stenosis or regurgitation. Pulmonary artery systolic pressure is normal. Pulmonic Valve Structurally normal pulmonic valve without significant stenosis. There is no pulmonic regurgitation. Pericardium Normal pericardium without effusion. Aorta Normal ascending aorta dimension. IVC The inferior vena cava appears normal. CONCLUSIONS Normal left ventricular size, systolic function and wall thickness, with no regional wall motion abnormalities. Left ventricular ejection fraction is estimated at 60 %. Grade I/IV diastolic dysfunction (abnormal relaxation filling pattern), normal to mildly elevated filling pressures. No significant valve abnormalities. There is no pericardial effusion. Right atrial pressure is around 5 mm of mercury. Feli Dickinson MD (Electronically Signed) Final Date: 15 May 2024 13:15 S
--- NOTE | 2024-05-12 17:21 | PC.NURSE ---
Shift summary: - Should DC tomorrow - Qualified for 2l of home O2 - Sat up in the chair the majority of the shift - Good intake and output
[2024-05-12] MEDS: famotidine 20 mg/2 mL INJ IVP (20:51)
[2024-05-13] VITALS (19 sets, daily range): BP systolic 90–165; BP diastolic 58–108; PULSE 73–100; RESP 17–29; TEMP 36.9; O2SAT 87–99
[2024-05-13] MEDS: heparin 5,000 unit/mL INJ 1 mL 5000 UNIT SUBCUT (01:57)
[2024-05-13 05:36] LABS: Basophils % 0.1 %; Lymphocytes # 1.1 10^3/uL (0.8-4.8); Lymphocytes % 10.5 %; Mean Corpuscular HGB Conc 33.2 g/dL (30-55); Mean Corpuscular Volume 99.5 fl (85-98); Mean Platelet Volume 9.8 fL (7.4-10.4); Monocytes # 0.3 10^3/uL (0.2-0.9); Monocytes % 2.8 %; Neutrophils # 8.52 10^3/uL (1.8-7.7); Neutrophils % 85.5 %; Nucleated Red Blood Cells % 0 %; Platelet Count 337 10^3/cmm (157-399); Red Blood Count 3.82 10^6/uL (3.85-5.65); Red Cell Distribution Width 13.4 % (12.1-15.1); White Blood Count 9.97 10^3/uL (3.29-11.43)
[2024-05-13 05:57] LABS: Anion Gap 13.9 (5-19); Blood Urea Nitrogen 11 mg/dL (8-23); Calcium 8.8 mg/dL (8.5-10.5); Carbon Dioxide 28 mmol/L (22-29); Chloride 98 mmol/L (98-107); Creatinine Clr Calc Pharmacy 48.8661; Glucose 136 mg/dL (65-115); Osmolality Calculated 283 mOsm/kg (285-295); Potassium 3.9 mmol/L (3.5-5.1); Sodium 136 mmol/L (136-145)
[2024-05-13] MEDS: oseltamivir phosphate 75 mg Capsule PO (08:11)
[2024-05-13] MEDS: famotidine 20 mg/2 mL INJ IVP (08:11)
[2024-05-13] MEDS: atorvastatin 40 mg Tablet PO (08:11)
[2024-05-13] MEDS: aspirin 81 mg EC Tablet PO (08:11)
[2024-05-13] MEDS: psyllium powder Pkt 1 PACKET PO (08:12)
[2024-05-13] MEDS: ipratropium-albuterol 3 mL Neb INHALATION ×2 (08:36→11:11)
[2024-05-13] MEDS: methylPREDNISolone sod succ 40 mg/mL INJ IVP (10:11)
--- NOTE | 2024-05-13 13:01 | PC.SOCIAL ---
IMM Update pg 2 of IMM updated and reviewed w/ patient. Copy provided and copy dated, initialed and placed in chart.
--- NOTE | 2024-05-13 16:30 | PC.NURSE ---
All D/C instructions educated to patient and daughter, IV dc. meds to bed and o2 delivered. daughter to transport home
--- NOTE | 2024-05-13 17:33 | P.DS_ITS ---
Discharge Providers Date of Admission: 05/10/24 14:18 Date of Discharge: May 13, 2024 Attending Provider at Admission: Michelle Crook MD Attending Provider at Discharge: Mis Hayes MD Primary Care Provider: Barbi Andrews Diagnoses at Discharge Discharge Diagnosis (1) Hypertension: Status: Acute (2) Hyperlipidemia: Status: Acute (3) GERD (gastroesophageal reflux disease): Status: Acute (4) Rheumatoid arthritis: Status: Acute (5) Acute exacerbation of chronic obstructive airways disease: Status: Acute (6) Asthma: Status: Acute (7) Right middle lobe pneumonia: Status: Acute Reason for Visit Reason for Visit: SOB Hospital Course Hospital Course 79 year old female with who has been having a deteriorating pulmonary function since at least past medical history of hyperlipidemia, rheumatoid arthritis not on any medications, remote history asthma in 2023. She was brought to the emergency room on May 10, 2024 with chief complaints of shortness of breath. She had a new oxygen requirement of 5 L/min while she is typically not on any oxygen. She has received several rounds of outpatient steroids and doxycycline without any improvement. She is typically followed at [facility]. She is not currently on any disease modifying agents for rheumatoid arthritis. She used to be on methotrexate but was taken off several years ago. Patient was found to be positive for influenza A and started on treatment with Tamiflu 75 mg p.o. twice daily. CTA of the chest showed tree-in-bud pulmonary micronodules noted in the right middle lobe suggestive of small airway infectious or inflammatory process. There was no gross consolidation and no masses. Chest x-ray from day of admission made note of calcified granulomatous disease in both hemithoraces. Patient does not have a diagnosed history of any COPD or rheumatoid lung disease in the past, however given her timeline of worsening since of last year suspect that she may have underlying chronic lung disease which may have worsened related to acute viral illness. She had a PFT several years ago but does not remember the results. She was treated with Tamiflu, IV antibiotics. MRSA nasal screen was negative. Patient received treatment with levofloxacin. She states that her breathing improved with these interventions. She has an oxygen requirement of 2 L/min at the time of discharge on home O2 eval. This is being arranged. Additionally due to suspicion for underlying COPD, her inhalers have been optimized to include salmeterol/fluticasone twice daily and Spiriva inhalation once a day. Short course of steroids prednisone 40 mg daily for 5 days is recommended to be continued in addition to Tamiflu and oral antibiotics. Recommended to follow-up with primary care physician in the next 2 to 3 weeks to ensure continued recovery. Echocardiogram was additionally taken during the course of this admission, however remains pending at the time of discharge. There is no active concern for acute coronary syndrome therefore patient is being discharged to follow-up pending results with primary care provider. Physical Exam Narrative: General: No acute distress, AO x3 HEENT: PERRLA, pupils bilaterally equal and reactive, pallors not present Chest: Scattered wheezing over right hemithorax CVS: S1-S2 regular, no murmurs, no tachycardia, no gallops, no rubs Abdomen: Soft, nontender, no organomegaly, bowel sounds present Neuro: No focal deficits, no facial deformity, AO x3, power 5/5 in all limbs Extremities: No edema clubbing or cyanosis Discharge Data Studies Completed and Pending Completed Studies During Hospitalization Category Date Time Status CTA chest [CT angio chest PE protcl [id number]] Stat Cat Scan 05/10/24 14:18 Completed XR chest 1V portable [id number] Stat Exams 05/10/24 12:49 Completed Pending at discharge Category Date Time Status Blood Culture Stat Lab 05/10/24 14:03 Results CV. echo complete* [id number] Routine Ultrasound 05/12/24 16:47 Taken Radiology Impressions Chest X-Ray 05/10/24 12:49 IMPRESSION: Stable chest with no acute abnormality. Chest CTA 05/10/24 14:18 IMPRESSION: 1. Tree-in-bud pulmonary micro nodules noted in the right middle lobe suggestive of small airway infectious or inflammatory process. 2. Negative for pulmonary embolism. Laboratory Results WBC 9.97 10^3/uL (3.29-11.43) 05/13/24 04:44 Corrected WBC Cancelled 05/12/24 04:16 RBC 3.82 10^6/uL (3.85-5.65) L 05/13/24 04:44 Hgb 12.60 g/dL (11.27-16.99) 05/13/24 04:44 Hct 38.0 % (36-47) 05/13/24 04:44 MCV 99.5 fl (85-98) H 05/13/24 04:44 MCH 33.0 pg (27-33) 05/13/24 04:44 MCHC 33.2 g/dL (30-55) 05/13/24 04:44 RDW 13.4 % (12.1-15.1) 05/13/24 04:44 Plt Count 337 10^3/cmm (157-399) D 05/13/24 04:44 MPV 9.8 fL (7.4-10.4) 05/13/24 04:44 Gran % Cancelled 05/12/24 04:16 Neut % (Auto) 85.5 % 05/13/24 04:44 Lymph % (Auto) 10.5 % 05/13/24 04:44 Banner % (Auto) 2.8 % 05/13/24 04:44 Eos % (Auto) 0.0 % 05/13/24 04:44 Baso % (Auto) 0.1 % 05/13/24 04:44 Neut # (Auto) 8.52 10^3/uL (1.8-7.7) H 05/13/24 04:44 Lymph # (Auto) 1.1 10^3/uL (0.8-4.8) 05/13/24 04:44 Banner # (Auto) 0.3 10^3/uL (0.2-0.9) 05/13/24 04:44 Eos # (Auto) 0.0 10^3/uL (0.0-0.8) 05/13/24 04:44 Baso # (Auto) 0.0 10^3/uL (0.0-0.1) 05/13/24 04:44 Absolute Gran (auto) Cancelled 05/12/24 04:16 Nucleated RBC % (auto) 0 % 05/13/24 04:44 Nucleated RBCs # 0.0 /100WBC 05/13/24 04:44 Specimen Type Arterial 05/10/24 12:58 Sample Site Brachial, left 05/10/24 12:58 ABG pH 7.48 (7.35-7.45) H 05/10/24 12:58 ABG pCO2 45.7 mmHg (35-45) H 05/10/24 12:58 ABG pO2 45.9 mmHg (80.0-100.0) L 05/10/24 12:58 ABG PO2/FiO2 Ratio 143 05/10/24 12:58 ABG HCO3 33.9 mmol/L (22-26) H 05/10/24 12:58 ABG O2 Saturation 81.0 05/10/24 12:58 ABG Base Excess 9.0 mmol/L (-2.0-2.0) H 05/10/24 12:58 Rufino Test Pos 05/10/24 12:58 A-a O2 Gradient 16.1 mmHg (5-10) H 05/10/24 12:58 Hematocrit 42.4 % (37-47) 05/10/24 12:58 Hgb O2 Saturation 79.3 % (95-100) L 05/10/24 12:58 Carboxyhemoglobin 1.2 %THgb (0.4-20.1) 05/10/24 12:58 Methemoglobin 0.9 % (0.4-1.5) 05/10/24 12:58 Total Hemoglobin 13.8 g/dL (12-16) 05/10/24 12:58 Sodium 139.0 mmol/L (131-143) 05/10/24 12:58 Potassium 3.3 mmol/L (3.5-5.0) L 05/10/24 12:58 Glucose 121.0 mg/dL (70-115) H 05/10/24 12:58 Ionized Calcium 1.1 mmol/L (1.1-1.4) 05/10/24 12:58 O2 Delivery Device Nc 05/10/24 12:58 O2 Liters/Min 3.0 % 05/10/24 12:58 FiO2 32.0 % 05/10/24 12:58 [employer] ID Cak 05/10/24 12:58 Sodium 136 mmol/L (136-145) 05/13/24 04:44 Potassium 3.9 mmol/L (3.5-5.1) 05/13/24 04:44 Chloride 98 mmol/L (98-107) 05/13/24 04:44 Carbon Dioxide 28 mmol/L (22-29) 05/13/24 04:44 Anion Gap 13.9 (5-19) 05/13/24 04:44 BUN 11 mg/dL (8-23) 05/13/24 04:44 Creatinine 0.6 mg/dL (0.5-0.9) 05/13/24 04:44 GFR Calculation Not Reportable 05/13/24 04:44 Glucose 136 mg/dL (65-115) H 05/13/24 04:44 Calculated Osmolality 283 mOsm/kg (285-295) L 05/13/24 04:44 Lactic Acid 2.1 mmol/L (0.5-2.2) 05/10/24 12:58 Lactic Acid (Sepsis) 1.5 mmol/L (0.5-2.2) 05/10/24 15:42 Calcium 8.8 mg/dL (8.5-10.5) 05/13/24 04:44 Magnesium 2.0 mg/dL (1.7-2.3) 05/13/24 04:44 Total Bilirubin 0.4 mg/dL (0.15-1.2) 05/12/24 06:19 AST 29 U/L (0-32) 05/12/24 06:19 ALT 19 U/L (0-33) 05/12/24 06:19 Alkaline Phosphatase 40 U/L (35-105) 05/12/24 06:19 Troponin T Baseline 12 ng/L (0-10) H 05/10/24 12:58 Troponin T 120 Minute 10.48 ng/L (0-10) H 05/10/24 15:42 Delta Troponin T -1.52 ABS# (0-10) L 05/10/24 15:42 Troponin T Hi Sens 6Hr 8.90 ng/L (0-10) 05/10/24 18:32 Troponin T Hi Sens 6Hr Delta -3.10 ng/L (0-12) L 05/10/24 18:32 C-Reactive Protein 3.9 mg/L (0.0-4.9) 05/10/24 12:58 NT-Pro-B Natriuret Pep 243 pg/mL (0-450) 05/10/24 12:58 Total Protein 5.8 g/dL (6.6-8.7) L 05/12/24 06:19 Albumin 3.5 g/dL (3.5-5.2) 05/12/24 06:19 Globulin 2.3 g/dL (1.3-4.6) 05/12/24 06:19 Procalcitonin 0.02 ng/mL (0-0.5) 05/11/24 04:19 Nasal MRSA (PCR) Not detected (Not Detecte) 05/11/24 17:10 Adenovirus (PCR) Not detected (NOT DETECT) 05/10/24 13:30 C. pneumoniae DNA (PCR) Not detected (NOT DETECT) 05/10/24 13:30 Coronavirus 229E (PCR) Not detected (NOT DETECT) 05/10/24 13:30 Human Metapneumovir PCR Not detected (NOT DETECT) 05/10/24 13:30 Influenza A (H1) PCR Not detected (NOT DETECT) 05/10/24 13:30 Influ A (H1/09) PCR Detected (NOT DETECT) A 05/10/24 13:30 Influenza A (H3) PCR Not detected (NOT DETECT) 05/10/24 13:30 Influenza Type A (PCR) Not detected (NOT DETECT) 05/10/24 13:30 Influenza Type B (PCR) Not detected (NOT DETECT) 05/10/24 13:30 M. pneumoniae (PCR) Not detected (NOT DETECT) 05/10/24 13:30 Parainfluenza 1 (PCR) Not detected (NOT DETECT) 05/10/24 13:30 Parainfluenza 2 (PCR) Not detected (NOT DETECT) 05/10/24 13:30 Parainfluenza 3 (PCR) Not detected (NOT DETECT) 05/10/24 13:30 Parainfluenza 4 (PCR) Not detected (NOT DETECT) 05/10/24 13:30 RSV Type A (PCR) Not detected (NOT DETECT) 05/10/24 13:30 RSV Type B (PCR) Not detected (NOT DETECT) 05/10/24 13:30 Entero/Rhino (PCR) Not detected (NOT DETECT) 05/10/24 13:30 SARS-CoV-2 (PCR) Not detected (NOT DETECT) 05/10/24 13:30 Vitals Last Vital Signs Temp 98.5 F 05/13/24 05:59 Pulse 100 05/13/24 16:31 Resp 29 H 05/13/24 12:00 BP 135/74 05/13/24 16:31 Pulse Ox 92 05/13/24 16:31 O2 Del Method Nasal Cannula 05/13/24 11:12 O2 Flow Rate 2 05/13/24 11:12 Discharge Plan Discharge Patient Disposition: Home Condition: Stable Prescriptions: New oseltamivir 75 mg Capsule 75 mg PO BID 3 Days Qty: 6 0RF levofloxacin 500 mg tablet 500 mg PO DAILY 3 Days Qty: 3 0RF fluticasone propion-salmeterol [Advair Diskus] 500-50 mcg/dose blister with device 1 inh inhalation BID 30 Days Qty: 60 0RF tiotropium bromide [Spiriva with HandiHaler] 18 mcg capsule, w/inhalation device 1 cap inhalation DAILY 30 Days Qty: 30 0RF Rx Instructions: puncture 1 cap using device; one dose = 2 inhalations Continued albuterol sulfate [Ventolin HFA] 90 mcg/actuation HFA aerosol inhaler 2 puff INHALATION Q6H PRN (Reason: Shortness Of Breath) atorvastatin 20 mg tablet 40 mg PO DAILY aspirin [Deanna Low Dose Aspirin] 81 mg tablet,delayed release (DR/EC) 81 mg PO DAILY Qty: 30 0RF acetaminophen [Tylenol] 325 mg Tablet 650 mg PO QID PRN (Reason: Fever Or Pain) famotidine 20 mg tablet 20 mg PO BID Centrum Silver Women 8 mg iron-400 mcg-50 mcg Tablet 1 tab PO DAILY Metamucil 3.4 gram/5.4 gram Powder 1 tbsp PO BID Rx Instructions: mix into at least 8 oz of water or juice before administering potassium citrate 99 mg Capsule 99 mg PO BID Changed prednisone 20 mg tablet 40 mg PO DAILY 5 Days Qty: 5 0RF Rx Instructions: TAKE 3 TABLETS BY MOUTH DAILY FOR 5 DAYS THEN TAKE 2 TABLETS BY MOUTH DAILY FOR 5 DAYS THEN TAKE 1 TABLET BY MOUTH DAILY FOR 5 DAYS Discontinued doxycycline hyclate 100 mg capsule 100 mg PO BID Discharge Orders: Discharge Order (Routine); Ordered 05/13/24 Ordered By: Mis Hayes Other Ambulatory Orders: DME: Oxygen (Order) Location: None Selected Ordered By: Mis Hayes Referrals: Barbi Andrews PA [Primary Care Provider] - 7-10 days (this office states it is closed today please call them tomorrow to make an appt) Discharge Diet: Usual diet Discharge Activity: Increase activity as tolerated Patient Instructions: Asthma Exacerbation - Adult, Fluticasone (By breathing), Levofloxacin (By mouth), Oseltamivir (By mouth), Tiotropium (By breathing), COPD - Emphysema, Viral Pneumonia (DC), Hypoxia (ED), Opioid Safety Discharge Attestations Time Spent in Discharge Care*: greater than 30 min Quality Metrics Clinical Quality Measures [ No reported AMI, CVA or VTE this stay] Coding Level of Care Code Acute Code for Chg Fwd Diagnoses Hypertension I10 Hyperlipidemia E78.5 GERD (gastroesophageal reflux disease) K21.9 Rheumatoid arthritis M06.9 Acute exacerbation of chronic obstructive airways disease J44.1 Asthma J45.909 Right middle lobe pneumonia J18.9
== END 2024-05-13 16:32 | disposition home or self-care (01) | DRG 190 ==
LOC: ER 14:19 → ICU 15:15
PROVIDERS: Admitting Provider Internal Medicine; Emergency Provider Emergency Medicine; PCP Physician Assistant; Visit Provider Student in an Organized Health Care Education/Training Program
DX: J44.0 Chronic obstructive pulmonary disease with (acute) lower respiratory infection (principal); J18.9 Pneumonia, unspecified organism; J44.1 Chronic obstructive pulmonary disease with (acute) exacerbation; E78.5 Hyperlipidemia, unspecified; I10 Essential (primary) hypertension; K21.9 Gastro-esophageal reflux disease without esophagitis; M06.9 Rheumatoid arthritis, unspecified; J10.1 Influenza due to other identified influenza virus with other respiratory manifestations; R09.02 Hypoxemia; Z87.891 Personal history of nicotine dependence; Z86.73 Personal history of transient ischemic attack (TIA), and cerebral infarction without residual deficits; Z79.82 Long term (current) use of aspirin
CPT/HCPCS: 36415; 36600; 71045; 71275; 80048; 80051; 80053; 82330; 82805; 83605; 83735; 83880; 84145; 84484; 85025; 86140; 86403; 87040; 87449; 87486; 87581; 87633; 93005; 93306; 94640; 94760; 96365; 96372; 96374; 96375; 96376; 99285; J0456; J0696; J1644; J1956; J2919; J3370; J3372; J3490; J7030; J7050; J7613

== ENCOUNTER 2024-08-20 11:41 | Outpatient (CLI) | payer MEDICARE, SELFPAY ==
--- NOTE | 2024-08-20 11:52 | MR_ITS ---
WS: [id number] MRI CERVICAL SPINE NONCONTRAST TECHNIQUE: Sagittal T1, T2 and STIR imaging. Axial T2, gradient, and fiesta imaging. CLINICAL INFORMATION: CERVICALGIA/CHRONIC PAIN COMPARISON: None. FINDINGS: Straightening of the normal cervical lordosis. ACDF C3-C5. Spinal hardware degrades images. Small amount of fluid at the C1-2 articulation likely inflammatory. C2-C3: Mild facet arthropathy. C3-C4: ACDF. Moderate LEFT and mild RIGHT bony foraminal narrowing. Moderate facet arthropathy. C4-C5: ACDF. Severe bilateral bony foraminal narrowing. Moderate facet arthropathy with uncovertebral joint hypertrophy. C5-C6: ACDF. Severe LEFT greater than RIGHT bony foraminal narrowing. Moderate facet arthropathy. Mild central canal stenosis. C6-C7: Uncovertebral joint hypertrophy. Interbody fusion. Severe LEFT and mild RIGHT bony foraminal narrowing. Mild central canal stenosis. C7-T1: Grade 1 anterolisthesis. Severe LEFT and no significant RIGHT bony foraminal narrowing. Spinal canal is patent. Visualized brain stem structures: Normal. Prevertebral soft tissues: Normal. MR/MR cervical spin wo con* [id number] IMPRESSION: Some images are limited due to hardware susceptibility artifact 1. Postoperative changes ACDF C3-C5. Interbody fusion C6-7. 2. Grade 1 anterolisthesis C7 on T1. 3. Mild central canal stenosis C5-C6 and C6-C7. 4. Multilevel moderate to severe bony foraminal narrowing worse at bilateral C 4-5, LEFT C5-6, LEFT C6-7, and LEFT C7-T1 5. Tiny amount of chronic myelomalacia in the cervical cord at C6. 6. Small amount of fluid at the C1-2 articulation likely degenerative or infla mmatory. 7. Small central protrusions in the upper cervical spine at T1-T3.
== END 2024-08-20 11:42 | disposition home or self-care (01) ==
PROVIDERS: PCP Physician Assistant; Visit Provider Physician Assistant
DX: M48.02 Spinal stenosis, cervical region (principal); Z98.890 Other specified postprocedural states; R93.7 Abnormal findings on diagnostic imaging of other parts of musculoskeletal system; M51.24 Other intervertebral disc displacement, thoracic region; M47.892 Other spondylosis, cervical region; M89.38 Hypertrophy of bone, other site
CPT/HCPCS: 72141

== ENCOUNTER 2025-03-11 14:38 | Outpatient (CLI) | payer MEDICARE, SELFPAY ==
--- NOTE | 2025-03-11 14:46 | XR_ITS ---
WS: [id number] SCREENING DEXA SCAN [employer] CLINICAL INFORMATION: POST MENOPAUSAL STATE COMPARISON: 2019 FINDINGS: The L1-L4 bone mineral density measures 1.068 g/cm2. This corresponds to a T score score of -0.9 and Z score of 0.8. Left femoral neck bone mineral density measures 0.822 g/cm2. This corresponds to a T score of -1.5 and Z score of 0.5. Right femoral neck bone mineral density measures 0.720 g/cm2. This corresponds to a T score -2.3of and Z score of -0.4. Mean femoral neck bone mineral density measures 0.771 g/cm2. This corresponds to a T score of -1.9 and Z score of 0.1. XR/XR DEXA axial skeleton* [id number] IMPRESSION: Normal bone mineralization lumbar spine approaching osteopenia. Osteopenia femo ral necks. Patient's FRAX calculated 10 year probability for major osteoporotic fracture i s 29.3% and osteoporotic hip fracture is 9.2%. Bone density lumbar spine increased 0.3% Bone density femoral necks decrease -8.6%
== END 2025-03-11 14:39 | disposition home or self-care (01) ==
LOC: RAD 14:41
PROVIDERS: PCP Physician Assistant; Visit Provider Physician Assistant
DX: Z13.820 Encounter for screening for osteoporosis (principal); Z78.0 Asymptomatic menopausal state; M85.89 Other specified disorders of bone density and structure, multiple sites
CPT/HCPCS: 77080